=== PATIENT | female | born 1950 | race Caucasian/White ===

== ENCOUNTER 2017-01-05 09:46 | Emergency (ER) | payer MEDICARE, BC ==
[~2017-01-05 09:46] MED LIST: ACETAMINOPHEN500 M1 PO; BABY ASPIRIN81 MG PO; LEVAQUIN250 MG PO; LOPRESSOR25 MG PO; NEPHRO-VITE RX1 TAB PO; NITROSTAT0.4 MG SL; PHENERGAN25 M1 PO; PRILOSEC20 MG PO; PRINIVIL20 MG PO; RENVELA2.4 GM PO; SENSIPAR30 MG PO; ULTRAM50 MG PO; ZYLOPRIM100 MG PO
[2017-01-05 10:48] LABS: BASOPHILS 0.9 % (0.0-2.0); EOSINOPHILS 1.3 % (0-7); HEMATOCRIT 40.1 % (36.0-48.0); IMMATURE GRANULOCYTES 0.9 % (0-5); LYMPHOCYTES 18.8 % (15-50); MCH 31.8 pg (26.0-34.0); MCHC 32.4 g/dL (31.0-37.0); MONOCYTES 7.5 % (2-11); NEUTROPHILS 70.6 % (40-80); PLATELET COUNT 201 10x3/uL (130-400); RBC 4.09 10x6/uL (4.00-5.40); RDW 13.9 % (11.5-14.5); WBC 5.4 10x3/uL (4.8-10.8)
[2017-01-05 11:22] LABS: ANION GAP 17.9 mmol/L (8-16); BILIRUBIN - TOTAL 0.56 mg/dL (0.2-1.3); CALCIUM 8.8 mg/dL (8.5-10.1); CARBON DIOXIDE 27.6 mmol/L (21.0-32.0); CREATININE - SERUM 4.8 mg/dL (0.6-1.3); POTASSIUM - SERUM 4.5 mmol/L (3.5-5.1); PROTEIN - SERUM 7.9 g/dL (6.4-8.2); TROPONIN-I 0.032 ng/mL (0.000-0.060)
--- NOTE | 2017-01-07 08:41 | CN ---
PATIENT NAME:GINNA CAROLINA MEDICAL RECORD: [id number] : 46 LOCATION:D.ER ADMIT DATE: ACCOUNT: [id number] CONSULTING PHYSICIAN: EWELINA HILLIARD MD REFERRING PHYSICIAN: MAGDY LAND MD DATE OF CONSULTATION: 01/05/2017 DIAGNOSES: 1. Premature ventricular contractions - dysrhythmia. 2. End-stage renal failure on dialysis. 3. Hypertension. HISTORY OF PRESENT ILLNESS: Mrs. Carolina was on dialysis. It appears that they did vitals, they thought her heart rate was in the 30s, so they sent her to the Emergency Room. She has frequent PVCs and episodes of bigeminy. Her pulse rate has not falling below 60s since she has been in the Emergency Room. She is only sleepy. She does not have chest pain or chest discomfort. She is on metoprolol. She has been told in the past that she has an abnormal heart rhythm. She is not sure if she is on the metoprolol for that or for blood pressure, she is well on lisinopril. She has been on dialysis 6 years. No cardiac issues other than the PVCs. Her EKG has no ST-T abnormalities. PHYSICAL EXAMINATION: GENERAL APPEARANCE: Well-nourished, well-developed, appears stated age. Level of distress, comfortable. PSYCHIATRIC: Mental status, alert, normal affect. Orientation, oriented to time, place and person. EYES: Lids and conjunctiva, noninjected. No discharge, no pallor. ENT: Lips, teeth, gums, normal dentition. Oropharynx, no cyanosis, no pallor. NECK: Carotid arteries, bilateral normal upstroke, no bruits, no thrills. JUGULAR VEINS: No jugular venous pressure or distention. CERVICAL LYMPH NODES: Nontender, nonenlarged. THYROID: Not enlarged. Nontender. No nodules. LUNGS: Respiratory effort, unlabored. CHEST: Normal curvature. No thoracic deformity. No chest wall tenderness. Percussion, resonant. Auscultation, clear. No wheezes, no rales, no rhonchi. CARDIOVASCULAR: Precordial exam, nondisplaced. No heaves or pericardial thrills. Rate and rhythm, regular. Heart sounds, normal S1, normal S2. No S3, no gallop, no rub. Systolic murmur, not heard. Diastolic murmur, not heard. EXTREMITIES: No cyanosis, no edema. Peripheral pulses, full and equal in all extremities, except as noted. No bruits appreciated. ABDOMEN: Soft, nondistended. Normal aorta. No bruit. Nontender. No masses. Liver, nontender, no hepatomegaly. Spleen, nontender, no splenomegaly. MUSCULOSKELETAL: No joint tenderness. No joint swelling. No erythema. NEUROLOGICAL: Normal gait, normal strength, normal tone. SKIN: Warm and dry. REVIEW OF SYSTEMS: The patient reports easy bruising but reports no swollen glands. The patient reports no fever, no night sweats, no significant weight gain, no significant weight loss. No significant exercise tolerance. The patient reports no dry eyes, no irritation, no vision change. Patient reports no difficulty hearing and no ear pain. Patient reports no frequent nose bleeds or nose and sinus problems. Patient reports on arm pain on exertion. No shortness of breath while lying down. No history of heart murmur. Patient reports no cough, no wheezing or coughing up blood. Patient reports no CONSULT REPORT [id number] GINNA CAROLINA abdominal pain, no vomiting. Normal appetite. No diarrhea and not vomiting blood. No nausea and no constipation. Patient reports no incontinence. No difficulty urinating. No hematuria. No increased frequency. Patient reports no muscle aches. No weakness, no arthralgias, no back pain. No swelling of the extremities. Patient reports no abnormal mole, no jaundice, no rashes. Reports no loss of consciousness. No weakness and no numbness. No seizures, dizziness, or headaches. The patient reports no depression, no sleep disturbance, feeling safe in a relationship and no alcohol abuse. Patient reports on fatigue. Reports no runny nose or sinus pressure. No itching, no hives, and no frequent sneezing. OVERALL IMPRESSION: Her pulse rate was not in 30s, it was the premature ventricular contractions on vital check that gave the impression that she had bradycardia, but she did not have bradycardia. She has not had any bradycardia since being on telemetry. We can try changing the metoprolol to sotalol to see if this would do a better job suppressing the premature ventricular contractions, but overall she is minimally symptomatic with the premature ventricular contractions and it is difficult to say if the overall state is even coming from the premature ventricular contractions or just from being end-stage renal failure on dialysis. We will see her back in approximately 1 month to see if the sotalol has made a difference in her symptomatology and the premature ventricular contractions. TRANSINT:[id number] Voice Confirmation ID: [id number] DOCUMENT ID: [id number] EWELINA HILLIARD MD at 0841 CC: [id number] DICTATION DATE: 01/05/17 1342 SENIOR SOLUTIONS ARCHITECT: 01/05/17 2116 DEP ER 01/05/17 [id number] [place] [address]
== END 2017-01-05 14:16 | disposition home or self-care (01) ==
LOC: D.ER 09:46
PROVIDERS: Emergency Medicine
DX: R00.1 Bradycardia, unspecified (principal); I10 Essential (primary) hypertension; K21.9 Gastro-esophageal reflux disease without esophagitis

== ENCOUNTER 2018-07-14 10:41 | Inpatient (IN) | payer MEDICARE, BC ==
[~2018-07-14] VITALS: Ht 165.1 cm; Wt 56.8 kg
--- NOTE | ~2018-07-14 | MORECARE ---
CASE MANAGEMENT DISCHARGE SUMMARY PATIENT: GINNA CAROLINA UNIT: [id number] ADM DATE: 07/14/18 AGE: 67 : [birth year] SEX: F ROOM/BED: D.7235 AUTHOR: GERARDO BROWNING PHYSICIAN: REFERRING PHYSICIAN: LUZMA JACKSON MD DATE OF SERVICE: 07/26/18 Discharge Plan Patient Name: GINNA CAROLINA Facility: [facility]:[place] : 1950 Planned Disposition: Home with Home Health Anticipated Discharge Date: 07/26/18 Discharge Date: Expected LOS: 12 Initial Reviewer: [email or web address] Initial Review Date: 07/18/2018 Generated: 07/26/18 2:35 pm Comments DCP- Discharge Planning Updated by [id number]: Akin Hastings on 07/26/18 12:[address] Patient Name: GINNA CAROLINA Encounter No: [id number] : 1950 Primary Insurance: MEDICARE A & B Anticipated DC Date: 07-27-2018 Planned Disposition: Home with Home Health External Planned Provider: [facility] DCP follow-up note: CM RECEIVED DISCHARGE PLANNING ORDER, MET WITH PT AND SPOUSE IN ROOM. PT REPORTS PLAN TO RETURN HOME AT DISCHARGE AND IS NOT INTERESTED IN INPATIENT REHAB OR SENIOR CARE REHAB. PT'S SPOUSE REPORTS HE WILL BE TAKING CARE OF PT AT HOME. PT IS STILL WANTING HOME HEALTH WITH [facility]. IMPORTANT MESSAGE FROM MEDICARE PROVIDED AND EXPLAINED. CM CALLED [facility], , SPOKE TO MARYBETH WHO INFORMED CM THAT [facility] WILL ACCEPT PT FOR HOME HEALTH SERVICES AT DISCHARGE. CM NOTIFIED OF PROJECTED DISCHARGE HOME TOMORROW. FOR DISCHARGE, FAX DISCHARGE INFORMATION TO [facility], . NOTIFY [facility] OF DISCHARGE HOME AT [phone]. CM TO CONTINUE TO FOLLOW AND ASSIST NEEDED. Akin Hastings, CASE MANAGEMENT Appended by Akin Hastings on 07/26/2018 13:32 CDT: CM RECEIVED DISCHARGE ORDER, FAXED DISCHARGE INFORMATION TO [facility], . NOTIFIED ALISA AT [facility] OF DISCHARGE HOME AT [phone]. FLAT EXAMINER NURSE NOTIFIED. SPOUSE TO TRANSPORT HOME. JAYESH WARNER DCP- Discharge Planning Updated by [id number]: Akin Hastings on 07/21/18 8:[address] Patient Name: GINNA CAROLINA Encounter No: [id number] : 1950 Primary Insurance: MEDICARE A & B Anticipated DC Date: 07-22-2018 Planned Disposition: Home with Home Health External Planned Provider: [facility] DCP follow-up note: CM RECEIVED HOME HEALTH RODER, MET WITH PT AND SPOUSE IN ROOM TO DISCUSS DISCHARGE NEEDS AND PLANNING. GINNA CAROLINA provided verbal consent to discuss current and ongoing needs with/in the presence of: SPOUSE LISA. CM DISCUSSED HOME HEALTH ORDER, AVILABILITY OF HOME HEALTH, REHAB SERVICES AND MEDICAL EQUIPMENT. PT DENIES DISCHARGE NEEDS OTHER THAN HOME HEALTH. SHE REPORTS SHE WILL TRY IT IT WAS RECOMMENDED BY A FAMILY MEMBER. CHOICE SIGNED WITH NO PROVIDER PREFERENCE. SPOUSE TO TRANSPORT HOME AT DISCHARGE. IMPORTANT MESSAGE FROM MEDICARE PROVIDED AND EXPLAINED. CM CALLED [facility], , SPOKE TO MARIO WHO TOOK REFERRAL AND WILL FORWARD TO LOCAL [facility] FOR REVIEW AND ADMISSION DETERMINATION. CM FAXED REFERRAL TO [facility], . CM WAITING ADMISSION DETERMINATION FROM [facility]. JAYESH Warner DCP- Discharge Planning Updated by [id number]: Akin Hastings on 07/18/18 11:[address] Patient Name: GINNA CAROLINA Admission Status: Elective Accout number: [id number] Admission Date: 07-14-2018 : 1950 Admission Diagnosis:OTHER NONSPECIFIC ABNORMAL FINDING OF LUNG FIELD Attending: Luzma Jackson Current LOS: 4 Anticipated DC Date: 07-18-2018 Planned Disposition: Home Primary Insurance: MEDICARE A & B Discharge Planning Comments: * Is the patient Alert and Oriented? Yes 0 * How many steps to enter\exit or inside your home? RAMP 0 * PCP DR. JACKSON 0 * Pharmacy [facility] [address] 0 * Preadmission Environment Home with Family 0 * ADLs Independent 0 * Equipment None 0 * Other Equipment NO MEDICAL EQUIPMENT PROVIDER PREFERENCE 0 * List name and contact numbers for known caregivers / representatives who currently or will assist patient after discharge: LISA CAROLINA, SPOUSE, 0 * Verbal permission to speak to the caregivers and representatives has been obtained from the patient. Yes 0 * Community resources currently utilized Other 0 * Please name any agencies selected above. [facility], [facility], [facility], [facility], SPOUSE OR ADULT SON TRANSPORTS 0 * Additional services required to return to the preadmission environment? No 0 * Can the patient safely return to the preadmission environment? Yes 0 * Has this patient been hospitalized within the prior 30 days at any hospital? No 0 CM RECEIVED ORDER FOR HOME NEEDS VS HOSPICE, MET WITH PT AND SPOUSE IN ROOM TO DISCUSS DISCHARGE PLANNING AND NEEDS. GINNA CAROLINA provided verbal consent to discuss current and ongoing needs with/in the presence of: SPOUSE, LISA. PT REPORTS LIVING AT HOME INDEPENDENTLY WITH HER SPOUSE AND ADULT SON. PT HAS NO MEDICAL EQUIPMENT AND NO OUTSIDE SERVICES ASSISTING IN THE HOME. CM DISCUSSED HOSPICE SERVICES WELL AVAILABILITY OF HOME HEALTH, REHAB SERVICES AND MEDICAL EQUIPMENT. PT AND SPOUSE BOTH DECLINE HOSPICE. PT'S SPOUSE REPORTS LONG HE CAN GET PT TO AND FROM [facility], SHE WILL BE GOING HOME WITH HIM. PT REPORTS SHE WANTS TO GO HOME NOW. PT AND SPOUSE DENIED DISCHARGE NEEDS, DECLINED NEED OF MEDICAL EQUIPMENT, REHAB SERVICES OR HOME HEALTH. PT'S SPOUSE WILL TRANSPORT PT HOME. IMPORTANT MESSAGE FROM MEDICARE PROVIDED AND EXPLAINED. PT AND SPOUSE DECLINED HOSPICE, HOME HEALTH, REHAB SERVICES AND DENIED NEED OF MEDICAL EQUIPMENT. PT PLANS TO DISCHARGE HOME WITH ASSISTANCE OF SPOUSE AND ADULT SON IN THE HOME. CM TO FOLLOW AND ASSIST IF NEEDED. Dope Worker: Akin Hastings DCPIA - Discharge Planning Initial Assessment Updated by [id number]: Akin Hastings on 07/18/18 12:06 pm * Is the patient Alert and Oriented? Yes * How many steps to enter\exit or inside your home? RAMP * PCP DR. JACKSON * Pharmacy [facility] [address] * Preadmission Environment Home with Family * ADLs Independent * Equipment None * Other Equipment NO MEDICAL EQUIPMENT PROVIDER PREFERENCE * List name and contact numbers for known caregivers / representatives who currently or will assist patient after discharge: LISA CAROLINA, SPOUSE, * Verbal permission to speak to the caregivers and representatives has been obtained from the patient. Yes * Community resources currently utilized Other * Please name any agencies selected above. [facility], [facility], [facility], [facility], SPOUSE OR ADULT SON TRANSPORTS * Additional services required to return to the preadmission environment? No * Can the patient safely return to the preadmission environment? Yes * Has this patient been hospitalized within the prior 30 days at any hospital? No Coverage Notice Reviewer: LIBAN Hastings Notice Issued Date-Time: 07/18/2018 10:55 Notice Type: IM Discharge Notice Notice Delivered To: Patient Relationship to Patient: Quill Stripper Name: Delivery Method: HAND - Hand Delivered Bibi Days: Prior Verbal Notification: Recipient Understood Notice: Yes Recipient Signature: Yes Med Rec Note Co-signed by Attending: Coverage Notice Comment: Reviewer: LIBAN Hastings Notice Issued Date-Time: 07/21/2018 9:25 Notice Type: Patient Choice Letter Notice Delivered To: Patient Relationship to Patient: Quill Stripper Name: Delivery Method: HAND - Hand Delivered Bibi Days: Prior Verbal Notification: Recipient Understood Notice: Yes Recipient Signature: Yes Med Rec Note Co-signed by Attending: Coverage Notice Comment: NO HHC PREFERENCE Reviewer: LIBAN Hastings Notice Issued Date-Time: 07/21/2018 9:25 Notice Type: IM Discharge Notice Notice Delivered To: Patient Relationship to Patient: Quill Stripper Name: Delivery Method: HAND - Hand Delivered Bibi Days: Prior Verbal Notification: Recipient Understood Notice: Yes Recipient Signature: Yes Med Rec Note Co-signed by Attending: Coverage Notice Comment: Reviewer: LIBAN Hastings Notice Issued Date-Time: 07/26/2018 10:00 Notice Type: IM Discharge Notice Notice Delivered To: Patient Relationship to Patient: Quill Stripper Name: Delivery Method: HAND - Hand Delivered Bibi Days: Prior Verbal Notification: Recipient Understood Notice: Yes Recipient Signature: Yes Med Rec Note Co-signed by Attending: Coverage Notice Comment: Last DP export: 07/26/18 12:23 Patient Name: GINNA CAROLINA Page [phone] at 1335 All edits/amendments must be made on the electronic document DICTATION DATE: 07/26/181333 CONSTRUCTION PROJECT ENGINEER: PHYLLIS 07/26/18 1334 RPT#: [id number] DC DATE: STATUS: ADM IN [facility] [address] [place] [address] END OF REPORT
--- NOTE | ~2018-07-14 | MORECARE ---
CASE MANAGEMENT DISCHARGE SUMMARY PATIENT: GINNA CAROLINA UNIT: [id number] ADM DATE: 07/14/18 AGE: 67 : 48 SEX: F ROOM/BED: D.8453 AUTHOR: GERARDO BROWNING PHYSICIAN: REFERRING PHYSICIAN: LUZMA JACKSON MD DATE OF SERVICE: 07/26/18 Discharge Plan Patient Name: GINNA CAROLINA Facility: [facility]:[place] : 1950 Planned Disposition: Home with Home Health Anticipated Discharge Date: 07/27/18 Discharge Date: Expected LOS: 13 Initial Reviewer: [email or web address] Initial Review Date: 07/18/2018 Generated: 07/26/18 12:24 pm Comments DCP- Discharge Planning Updated by [id number]: Akin Hastings on 07/21/18 8:[address] Patient Name: GINNA CAORLINA Encounter No: [id number] : 1950 Primary Insurance: MEDICARE A & B Anticipated DC Date: 07-22-2018 Planned Disposition: Home with Home Health External Planned Provider: [facility] DCP follow-up note: CM RECEIVED HOME HEALTH RODER, MET WITH PT AND SPOUSE IN ROOM TO DISCUSS DISCHARGE NEEDS AND PLANNING. GINNA CAROLINA provided verbal consent to discuss current and ongoing needs with/in the presence of: SPOUSE LISA. CM DISCUSSED HOME HEALTH ORDER, AVILABILITY OF HOME HEALTH, REHAB SERVICES AND MEDICAL EQUIPMENT. PT DENIES DISCHARGE NEEDS OTHER THAN HOME HEALTH. SHE REPORTS SHE WILL TRY IT IT WAS RECOMMENDED BY A FAMILY MEMBER. CHOICE SIGNED WITH NO PROVIDER PREFERENCE. SPOUSE TO TRANSPORT HOME AT DISCHARGE. IMPORTANT MESSAGE FROM MEDICARE PROVIDED AND EXPLAINED. CM CALLED [facility], , SPOKE TO MARIO WHO TOOK REFERRAL AND WILL FORWARD TO LOCAL [facility] OFFICE FOR REVIEW AND ADMISSION DETERMINATION. CM FAXED REFERRAL TO [facility], . CM WAITING ADMISSION DETERMINATION FROM [facility]. Akin Hastings CASE MANAGEMENT DCP- Discharge Planning Updated by [id number]: Akin Hastings on 07/18/18 11:[address] Patient Name: GINNA CAROLINA Admission Status: Elective Accout number: [id number] Admission Date: 07-14-2018 : 1950 Admission Diagnosis:OTHER NONSPECIFIC ABNORMAL FINDING OF LUNG FIELD Attending: Luzma Jackson Current LOS: 4 Anticipated DC Date: 07-18-2018 Planned Disposition: Home Primary Insurance: MEDICARE A & B Discharge Planning Comments: * Is the patient Alert and Oriented? Yes 0 * How many steps to enter\exit or inside your home? RAMP 0 * PCP DR. JACKSON 0 * Pharmacy [facility] [address] 0 * Preadmission Environment Home with Family 0 * ADLs Independent 0 * Equipment None 0 * Other Equipment NO MEDICAL EQUIPMENT PROVIDER PREFERENCE 0 * List name and contact numbers for known caregivers / representatives who currently or will assist patient after discharge: LISA CAROLINA, SPOUSE, 0 * Verbal permission to speak to the caregivers and representatives has been obtained from the patient. Yes 0 * Community resources currently utilized Other 0 * Please name any agencies selected above. [facility], [facility], [facility], [facility], SPOUSE OR ADULT SON TRANSPORTS 0 * Additional services required to return to the preadmission environment? No 0 * Can the patient safely return to the preadmission environment? Yes 0 * Has this patient been hospitalized within the prior 30 days at any hospital? No 0 CM RECEIVED ORDER FOR HOME NEEDS VS HOSPICE, MET WITH PT AND SPOUSE IN ROOM TO DISCUSS DISCHARGE PLANNING AND NEEDS. GINNA CAROLINA provided verbal consent to discuss current and ongoing needs with/in the presence of: SPOUSE, LISA. PT REPORTS LIVING AT HOME INDEPENDENTLY WITH HER SPOUSE AND ADULT SON. PT HAS NO MEDICAL EQUIPMENT AND NO OUTSIDE SERVICES ASSISTING IN THE HOME. CM DISCUSSED HOSPICE SERVICES WELL AVAILABILITY OF HOME HEALTH, REHAB SERVICES AND MEDICAL EQUIPMENT. PT AND SPOUSE BOTH DECLINE HOSPICE. PT'S SPOUSE REPORTS LONG HE CAN GET PT [facility] AND [facility], SHE WILL BE GOING HOME WITH HIM. PT REPORTS SHE WANTS TO GO HOME NOW. PT AND SPOUSE DENIED DISCHARGE NEEDS, DECLINED NEED OF MEDICAL EQUIPMENT, REHAB SERVICES OR HOME HEALTH. PT'S SPOUSE WILL TRANSPORT PT HOME. IMPORTANT MESSAGE FROM MEDICARE PROVIDED AND EXPLAINED. PT AND SPOUSE DECLINED HOSPICE, HOME HEALTH, REHAB SERVICES AND DENIED NEED OF MEDICAL EQUIPMENT. PT PLANS TO DISCHARGE HOME WITH ASSISTANCE OF SPOUSE AND ADULT SON IN THE HOME. CM TO FOLLOW AND ASSIST IF NEEDED. Audio Visual Aide: Akin Hastings DCPIA - Discharge Planning Initial Assessment Updated by [id number]: Akin Hastings on 07/18/18 12:06 pm * Is the patient Alert and Oriented? Yes * How many steps to enter\exit or inside your home? RAMP * PCP DR. JACKSON * Pharmacy [facility] [address] * Preadmission Environment Home with Family * ADLs Independent * Equipment None * Other Equipment NO MEDICAL EQUIPMENT PROVIDER PREFERENCE * List name and contact numbers for known caregivers / representatives who currently or will assist patient after discharge: LISA CAROLINA, SPOUSE, * Verbal permission to speak to the caregivers and representatives has been obtained from the patient. Yes * Community resources currently utilized Other * Please name any agencies selected above. [facility], [facility], [facility], [facility], SPOUSE OR ADULT SON TRANSPORTS * Additional services required to return to the preadmission environment? No * Can the patient safely return to the preadmission environment? Yes * Has this patient been hospitalized within the prior 30 days at any hospital? No Coverage Notice Reviewer: LIBAN Hastings Notice Issued Date-Time: 07/18/2018 10:55 Notice Type: IM Discharge Notice Notice Delivered To: Patient Relationship to Patient: Rubber Factory Worker Name: Delivery Method: HAND - Hand Delivered Bibi Days: Prior Verbal Notification: Recipient Understood Notice: Yes Recipient Signature: Yes Med Rec Note Co-signed by Attending: Coverage Notice Comment: Reviewer: LIBAN Hastings Notice Issued Date-Time: 07/21/2018 9:25 Notice Type: Patient Choice Letter Notice Delivered To: Patient Relationship to Patient: Rubber Factory Worker Name: Delivery Method: HAND - Hand Delivered Bibi Days: Prior Verbal Notification: Recipient Understood Notice: Yes Recipient Signature: Yes Med Rec Note Co-signed by Attending: Coverage Notice Comment: NO [facility] PREFERENCE Reviewer: LIBAN Hastings Notice Issued Date-Time: 07/21/2018 9:25 Notice Type: IM Discharge Notice Notice Delivered To: Patient Relationship to Patient: Rubber Factory Worker Name: Delivery Method: HAND - Hand Delivered Bibi Days: Prior Verbal Notification: Recipient Understood Notice: Yes Recipient Signature: Yes Med Rec Note Co-signed by Attending: Coverage Notice Comment: Reviewer: LIBAN Hastings Notice Issued Date-Time: 07/26/2018 10:00 Notice Type: IM Discharge Notice Notice Delivered To: Patient Relationship to Patient: Rubber Factory Worker Name: Delivery Method: HAND - Hand Delivered Bibi Days: Prior Verbal Notification: Recipient Understood Notice: Yes Recipient Signature: Yes Med Rec Note Co-signed by Attending: Coverage Notice Comment: Last DP export: 07/21/18 8:47 Patient Name: GINNA CAROLINA Page [id number] at 1124 All edits/amendments must be made on the electronic document DICTATION DATE: 07/26/181122 FOAM RUBBER MIXER: PHYLLIS 07/26/181122 RPT#: [id number] DC DATE: STATUS: ADM IN [facility] [address] [place] [address] END OF REPORT
--- NOTE | ~2018-07-14 | MORECARE ---
CASE MANAGEMENT DISCHARGE SUMMARY PATIENT: GINNA CAROLINA UNIT: [id number] ADM DATE: 07/14/18 AGE: 67 : 48 SEX: F ROOM/BED: D.0875 AUTHOR: GERARDO BROWNING PHYSICIAN: REFERRING PHYSICIAN: LUZMA JACKSON MD DATE OF SERVICE: 07/26/18 Discharge Plan Patient Name: GINNA CAROLINA Facility: [facility]:[place] : 1950 Planned Disposition: Home with Home Health Anticipated Discharge Date: 07/27/18 Discharge Date: Expected LOS: 13 Initial Reviewer: [id number] Initial Review Date: 07/18/2018 Generated: 07/26/18 12:32 pm Comments DCP- Discharge Planning Updated by [id number]: Akin Hastings on 07/26/18 10:[address] Patient Name: GINNA CAROLINA Encounter No: [id number] : 1950 Primary Insurance: MEDICARE A & B Anticipated DC Date: 07-27-2018 Planned Disposition: Home with Home Health External Planned Provider: [facility] DCP follow-up note: CM RECEIVED DISCHARGE PLANNING ORDER, MET WITH PT AND SPOUSE IN ROOM. PT REPORTS PLAN TO RETURN HOME AT DISCHARGE AND IS NOT INTERESTED IN INPATIENT REHAB OR NURSING HOME REHAB. PT'S SPOUSE REPORTS HE WILL BE TAKING CARE OF PT AT HOME. PT IS STILL WANTING HOME HEALTH WITH [facility]. IMPORTANT MESSAGE FROM MEDICARE PROVIDED AND EXPLAINED. CM CALLED [facility], , SPOKE TO MARYBETH WHO INFORMED CM THAT [facility] WILL ACCEPT PT FOR HOME HEALTH SERVICES AT DISCHARGE. CM NOTIFIED OF PROJECTED DISCHARGE HOME TOMORROW. FOR DISCHARGE, FAX DISCHARGE INFORMATION TO [facility], . NOTIFY [facility] OF DISCHARGE HOME AT [phone]. CM TO CONTINUE TO FOLLOW AND ASSIST NEEDED. JAYESH Tan DCP- Discharge Planning Updated by [id number]: Akin Hastings on 07/21/18 8:[address] Patient Name: GINNA CAROLINA Encounter No: [id number] : 1950 Primary Insurance: MEDICARE A & B Anticipated DC Date: 07-22-2018 Planned Disposition: Home with Home Health External Planned Provider: [facility] DCP follow-up note: CM RECEIVED HOME HEALTH RODER, MET WITH PT AND SPOUSE IN ROOM TO DISCUSS DISCHARGE NEEDS AND PLANNING. GINNA CAROLINA provided verbal consent to discuss current and ongoing needs with/in the presence of: SPOUSE LISA. CM DISCUSSED HOME HEALTH ORDER, AVILABILITY OF HOME HEALTH, REHAB SERVICES AND MEDICAL EQUIPMENT. PT DENIES DISCHARGE NEEDS OTHER THAN HOME HEALTH. SHE REPORTS SHE WILL TRY IT IT WAS RECOMMENDED BY A FAMILY MEMBER. CHOICE SIGNED WITH NO PROVIDER PREFERENCE. SPOUSE TO TRANSPORT HOME AT DISCHARGE. IMPORTANT MESSAGE FROM MEDICARE PROVIDED AND EXPLAINED. CM CALLED [facility], , SPOKE TO MARIO WHO TOOK REFERRAL AND WILL FORWARD TO LOCAL [facility] OFFICE FOR REVIEW AND ADMISSION DETERMINATION. CM FAXED REFERRAL TO [facility], . CM WAITING ADMISSION DETERMINATION FROM [facility]. Akin Hastings, CASE MANAGEMENT DCP- Discharge Planning Updated by [email or web address]: Akin Hastings on 07/18/18 11:[address] Patient Name: GINNA CAROLINA Admission Status: Elective Accout number: [id number] Admission Date: 07-14-2018 : 1950 Admission Diagnosis:OTHER NONSPECIFIC ABNORMAL FINDING OF LUNG FIELD Attending: Luzma Jackson Current LOS: 4 Anticipated DC Date: 07-18-2018 Planned Disposition: Home Primary Insurance: MEDICARE A & B Discharge Planning Comments: * Is the patient Alert and Oriented? Yes 0 * How many steps to enter\exit or inside your home? RAMP 0 * PCP DR. JACKSON 0 * Pharmacy [facility] [address] 0 * Preadmission Environment Home with Family 0 * ADLs Independent 0 * Equipment None 0 * Other Equipment NO MEDICAL EQUIPMENT PROVIDER PREFERENCE 0 * List name and contact numbers for known caregivers / representatives who currently or will assist patient after discharge: LISA CAROLINA, SPOUSE, 0 * Verbal permission to speak to the caregivers and representatives has been obtained from the patient. Yes 0 * Community resources currently utilized Other 0 * Please name any agencies selected above. [facility], [facility], [facility], [facility], SPOUSE OR ADULT SON TRANSPORTS 0 * Additional services required to return to the preadmission environment? No 0 * Can the patient safely return to the preadmission environment? Yes 0 * Has this patient been hospitalized within the prior 30 days at any hospital? No 0 CM RECEIVED ORDER FOR HOME NEEDS VS HOSPICE, MET WITH PT AND SPOUSE IN ROOM TO DISCUSS DISCHARGE PLANNING AND NEEDS. GINNA CAROLINA provided verbal consent to discuss current and ongoing needs with/in the presence of: SPOUSE, LISA. PT REPORTS LIVING AT HOME INDEPENDENTLY WITH HER SPOUSE AND ADULT SON. PT HAS NO MEDICAL EQUIPMENT AND NO OUTSIDE SERVICES ASSISTING IN THE HOME. CM DISCUSSED HOSPICE SERVICES WELL AVAILABILITY OF HOME HEALTH, REHAB SERVICES AND MEDICAL EQUIPMENT. PT AND SPOUSE BOTH DECLINE HOSPICE. PT'S SPOUSE REPORTS LONG HE CAN GET PT TO AND FROM [facility], SHE WILL BE GOING HOME WITH HIM. PT REPORTS SHE WANTS TO GO HOME NOW. PT AND SPOUSE DENIED DISCHARGE NEEDS, DECLINED NEED OF MEDICAL EQUIPMENT, REHAB SERVICES OR HOME HEALTH. PT'S SPOUSE WILL TRANSPORT PT HOME. IMPORTANT MESSAGE FROM MEDICARE PROVIDED AND EXPLAINED. PT AND SPOUSE DECLINED HOSPICE, HOME HEALTH, REHAB SERVICES AND DENIED NEED OF MEDICAL EQUIPMENT. PT PLANS TO DISCHARGE HOME WITH ASSISTANCE OF SPOUSE AND ADULT SON IN THE HOME. CM TO FOLLOW AND ASSIST IF NEEDED. Business Segment Manager: Akin Hastings DCPIA - Discharge Planning Initial Assessment Updated by [id number]: Akin Hastings on 07/18/18 12:06 pm * Is the patient Alert and Oriented? Yes * How many steps to enter\exit or inside your home? RAMP * PCP DR. JACKSON * Pharmacy [facility] * Preadmission Environment Home with Family * ADLs Independent * Equipment None * Other Equipment NO MEDICAL EQUIPMENT PROVIDER PREFERENCE * List name and contact numbers for known caregivers / representatives who currently or will assist patient after discharge: LISA CAROLINA, SPOUSE, * Verbal permission to speak to the caregivers and representatives has been obtained from the patient. Yes * Community resources currently utilized Other * Please name any agencies selected above. [facility], [facility], [facility], [facility], SPOUSE OR ADULT SON TRANSPORTS * Additional services required to return to the preadmission environment? No * Can the patient safely return to the preadmission environment? Yes * Has this patient been hospitalized within the prior 30 days at any hospital? No Coverage Notice Reviewer: [id number] - Akin Hastings Notice Issued Date-Time: 07/21/2018 9:25 Notice Type: Patient Choice Letter Notice Delivered To: Patient Relationship to Patient: Bias Cutter Helper Name: Delivery Method: HAND - Hand Delivered Bibi Days: Prior Verbal Notification: Recipient Understood Notice: Yes Recipient Signature: Yes Med Rec Note Co-signed by Attending: Coverage Notice Comment: NO [facility] PREFERENCE Reviewer: LIBAN Hastings Notice Issued Date-Time: 07/26/2018 10:00 Notice Type: IM Discharge Notice Notice Delivered To: Patient Relationship to Patient: Bias Cutter Helper Name: Delivery Method: HAND - Hand Delivered Bibi Days: Prior Verbal Notification: Recipient Understood Notice: Yes Recipient Signature: Yes Med Rec Note Co-signed by Attending: Coverage Notice Comment: Reviewer: LIBAN Hastings Notice Issued Date-Time: 07/21/2018 9:25 Notice Type: IM Discharge Notice Notice Delivered To: Patient Relationship to Patient: Bias Cutter Helper Name: Delivery Method: HAND - Hand Delivered Bibi Days: Prior Verbal Notification: Recipient Understood Notice: Yes Recipient Signature: Yes Med Rec Note Co-signed by Attending: Coverage Notice Comment: Reviewer: LIBAN Hastings Notice Issued Date-Time: 07/18/2018 10:55 Notice Type: IM Discharge Notice Notice Delivered To: Patient Relationship to Patient: Bias Cutter Helper Name: Delivery Method: HAND - Hand Delivered Bibi Days: Prior Verbal Notification: Recipient Understood Notice: Yes Recipient Signature: Yes Med Rec Note Co-signed by Attending: Coverage Notice Comment: Last DP export: 07/26/18 10:24 Patient Name: GINNA CAROLINA Page [id number] at 1132 All edits/amendments must be made on the electronic document DICTATION DATE: 07/26/18 1131 SOLAR INSTALLATION FOREMAN: DM 07/26/18 1131 RPT#: [id number] DC DATE: STATUS: ADM IN [facility] [address] [place] [address] END OF REPORT
--- NOTE | ~2018-07-14 | MORECARE ---
CASE MANAGEMENT DISCHARGE SUMMARY PATIENT: GINNA CAROLINA UNIT: [id number] ADM DATE: 07/14/18 AGE: 67 : 48 SEX: F ROOM/BED: D.6083 AUTHOR: GERARDO BROWNING PHYSICIAN: REFERRING PHYSICIAN: LUZMA JACKSON MD DATE OF SERVICE: 07/26/18 Discharge Plan Patient Name: GINNA CAROLINA Facility: [facility]:[place] : 1950 Planned Disposition: Home with Home Health Anticipated Discharge Date: 07/26/18 Discharge Date: Expected LOS: 12 Initial Reviewer: [id number] Initial Review Date: 07/18/2018 Generated: 07/26/18 2:23 pm Comments DCP- Discharge Planning Updated by [id number]: Akin Hastings on 07/26/18 10:[address] Patient Name: GINNA CAROLINA Encounter No: [id number] : 1950 Primary Insurance: MEDICARE A & B Anticipated DC Date: 07-27-2018 Planned Disposition: Home with Home Health External Planned Provider: [facility] DCP follow-up note: CM RECEIVED DISCHARGE PLANNING ORDER, MET WITH PT AND SPOUSE IN ROOM. PT REPORTS PLAN TO RETURN HOME AT DISCHARGE AND IS NOT INTERESTED IN INPATIENT REHAB OR [facility] REHAB. PT'S SPOUSE REPORTS HE WILL BE TAKING CARE OF PT AT HOME. PT IS STILL WANTING HOME HEALTH WITH [facility]. IMPORTANT MESSAGE FROM MEDICARE PROVIDED AND EXPLAINED. CM CALLED [facility], , SPOKE TO MARYBETH WHO INFORMED CM THAT [facility] WILL ACCEPT PT FOR HOME HEALTH SERVICES AT DISCHARGE. CM NOTIFIED OF PROJECTED DISCHARGE HOME TOMORROW. FOR DISCHARGE, FAX DISCHARGE INFORMATION TO [facility], . NOTIFY [facility] OF DISCHARGE HOME AT [phone]. CM TO CONTINUE TO FOLLOW AND ASSIST NEEDED. JAYESH Tan DCP- Discharge Planning Updated by [id number]: Akin Hastings on 07/21/18 8:[address] Patient Name: GINNA CAROLINA Encounter No: [id number] : 1950 Primary Insurance: MEDICARE A & B Anticipated DC Date: 07-22-2018 Planned Disposition: Home with Home Health External Planned Provider: [facility] DCP follow-up note: CM RECEIVED HOME HEALTH RODER, MET WITH PT AND SPOUSE IN ROOM TO DISCUSS DISCHARGE NEEDS AND PLANNING. GINNA CAROLINA provided verbal consent to discuss current and ongoing needs with/in the presence of: SPOUSE LISA. CM DISCUSSED HOME HEALTH ORDER, AVILABILITY OF HOME HEALTH, REHAB SERVICES AND MEDICAL EQUIPMENT. PT DENIES DISCHARGE NEEDS OTHER THAN HOME HEALTH. SHE REPORTS SHE WILL TRY IT IT WAS RECOMMENDED BY A FAMILY MEMBER. CHOICE SIGNED WITH NO PROVIDER PREFERENCE. SPOUSE TO TRANSPORT HOME AT DISCHARGE. IMPORTANT MESSAGE FROM MEDICARE PROVIDED AND EXPLAINED. CM CALLED [facility], , SPOKE TO MARIO WHO TOOK REFERRAL AND WILL FORWARD TO LOCAL [facility] OFFICE FOR REVIEW AND ADMISSION DETERMINATION. CM FAXED REFERRAL TO [facility], . CM WAITING ADMISSION DETERMINATION FROM [facility]. Akin Hastings, CASE MANAGEMENT DCP- Discharge Planning Updated by [id number]: Akin Hastings on 07/18/18 11:[address] Patient Name: GINNA CAROLINA Admission Status: Elective Accout number: [id number] Admission Date: 07-14-2018 : 1950 Admission Diagnosis:OTHER NONSPECIFIC ABNORMAL FINDING OF LUNG FIELD Attending: Luzma Jackson Current LOS: 4 Anticipated DC Date: 07-18-2018 Planned Disposition: Home Primary Insurance: MEDICARE A & B Discharge Planning Comments: * Is the patient Alert and Oriented? Yes 0 * How many steps to enter\exit or inside your home? RAMP 0 * PCP DR. JACKSON 0 * Pharmacy [facility] [address] 0 * Preadmission Environment Home with Family 0 * ADLs Independent 0 * Equipment None 0 * Other Equipment NO MEDICAL EQUIPMENT PROVIDER PREFERENCE 0 * List name and contact numbers for known caregivers / representatives who currently or will assist patient after discharge: LISA CAROLINA, SPOUSE, 0 * Verbal permission to speak to the caregivers and representatives has been obtained from the patient. Yes 0 * Community resources currently utilized Other 0 * Please name any agencies selected above. [facility] D[facility]YSIS, [facility], [facility], [facility], SPOUSE OR ADULT SON TRANSPORTS 0 * Additional services required to return to the preadmission environment? No 0 * Can the patient safely return to the preadmission environment? Yes 0 * Has this patient been hospitalized within the prior 30 days at any hospital? No 0 CM RECEIVED ORDER FOR HOME NEEDS VS HOSPICE, MET WITH PT AND SPOUSE IN ROOM TO DISCUSS DISCHARGE PLANNING AND NEEDS. GINNA CAROLINA provided verbal consent to discuss current and ongoing needs with/in the presence of: SPOUSE, LISA. PT REPORTS LIVING AT HOME INDEPENDENTLY WITH HER SPOUSE AND ADULT SON. PT HAS NO MEDICAL EQUIPMENT AND NO OUTSIDE SERVICES ASSISTING IN THE HOME. CM DISCUSSED HOSPICE SERVICES WELL AVAILABILITY OF HOME HEALTH, REHAB SERVICES AND MEDICAL EQUIPMENT. PT AND SPOUSE BOTH DECLINE HOSPICE. PT'S SPOUSE REPORTS LONG HE CAN GET PT TO AND FROM [facility], SHE WILL BE GOING HOME WITH HIM. PT REPORTS SHE WANTS TO GO HOME NOW. PT AND SPOUSE DENIED DISCHARGE NEEDS, DECLINED NEED OF MEDICAL EQUIPMENT, REHAB SERVICES OR HOME HEALTH. PT'S SPOUSE WILL TRANSPORT PT HOME. IMPORTANT MESSAGE FROM MEDICARE PROVIDED AND EXPLAINED. PT AND SPOUSE DECLINED HOSPICE, HOME HEALTH, REHAB SERVICES AND DENIED NEED OF MEDICAL EQUIPMENT. PT PLANS TO DISCHARGE HOME WITH ASSISTANCE OF SPOUSE AND ADULT SON IN THE HOME. CM TO FOLLOW AND ASSIST IF NEEDED. Wallpaper Consultant: Akin Hastings DCPIA - Discharge Planning Initial Assessment Updated by [id number]: Akin Hastings on 07/18/18 12:06 pm * Is the patient Alert and Oriented? Yes * How many steps to enter\exit or inside your home? RAMP * PCP DR. JACKSON * Pharmacy [facility] * Preadmission Environment Home with Family * ADLs Independent * Equipment None * Other Equipment NO MEDICAL EQUIPMENT PROVIDER PREFERENCE * List name and contact numbers for known caregivers / representatives who currently or will assist patient after discharge: LISA CAROLINA, SPOUSE, * Verbal permission to speak to the caregivers and representatives has been obtained from the patient. Yes * Community resources currently utilized Other * Please name any agencies selected above. [facility]IENT DIALYSIS, [facility], [facility], [facility], SPOUSE OR ADULT SON TRANSPORTS * Additional services required to return to the preadmission environment? No * Can the patient safely return to the preadmission environment? Yes * Has this patient been hospitalized within the prior 30 days at any hospital? No Coverage Notice Reviewer: [id number] - Akin Hastings Notice Issued Date-Time: 07/18/2018 10:55 Notice Type: IM Discharge Notice Notice Delivered To: Patient Relationship to Patient: Heating Engineer Name: Delivery Method: HAND - Hand Delivered Bibi Days: Prior Verbal Notification: Recipient Understood Notice: Yes Recipient Signature: Yes Med Rec Note Co-signed by Attending: Coverage Notice Comment: Reviewer: LIBAN Hastings Notice Issued Date-Time: 07/21/2018 9:25 Notice Type: Patient Choice Letter Notice Delivered To: Patient Relationship to Patient: Heating Engineer Name: Delivery Method: HAND - Hand Delivered Bibi Days: Prior Verbal Notification: Recipient Understood Notice: Yes Recipient Signature: Yes Med Rec Note Co-signed by Attending: Coverage Notice Comment: NO HHC PREFERENCE Reviewer: LIBAN Hastings Notice Issued Date-Time: 07/21/2018 9:25 Notice Type: IM Discharge Notice Notice Delivered To: Patient Relationship to Patient: Heating Engineer Name: Delivery Method: HAND - Hand Delivered Bibi Days: Prior Verbal Notification: Recipient Understood Notice: Yes Recipient Signature: Yes Med Rec Note Co-signed by Attending: Coverage Notice Comment: Reviewer: LIBAN Hastings Notice Issued Date-Time: 07/26/2018 10:00 Notice Type: IM Discharge Notice Notice Delivered To: Patient Relationship to Patient: Heating Engineer Name: Delivery Method: HAND - Hand Delivered Bibi Days: Prior Verbal Notification: Recipient Understood Notice: Yes Recipient Signature: Yes Med Rec Note Co-signed by Attending: Coverage Notice Comment: Last DP export: 07/26/18 10:32 Patient Name: GINNA CAROLINA Page [id number] at 1323 All edits/amendments must be made on the electronic document DICTATION DATE: 07/26/18 1323 CABLEMAN: PHYLLIS 07/26/18 1323 RPT#: [id number] DC DATE: STATUS: ADM IN [facility] [address] [place] [address] END OF REPORT
--- NOTE | ~2018-07-14 | HEMODYNAMI ---
PATIENT:GINNA CAROLINA MEDICAL RECORD: [id number] : 46 LOCATION:[facility] ADMISSION DATE: 07/14/18 Generatedon:07/18/20189:46 Patient name: GINNA CAROLINA Patient #: [id number] SSN: : [id number] Date of study: 07/18/2018 Page: Of Hemodynamic Procedure Report Patient Data Patient Demographics Procedure consent was obtained First Name: GINNA Gender: Female Last Name: CAITY : 1950 [facility] Initial: JOSÉ MIGUEL Age: 67 year(s) Patient #: [id number] Race: Unknown Additional ID: [id number] Contact details [address]: [address] [place] [address] State: [place] City: [place] Zip code: [address] Past Medical History Allergies Allergen Reaction Date Comments Reported Penicillins 07/18/2018 Admission Admission Data Admission Date: 07/14/2018 Admission Time: 12:15 Room #: [facility] Procedure Procedure Types Cath Procedure Peripheral Cath Diagnostic Procedure Miscellaneous Procedure Description Procedure Date Procedure Date: 07/18/2018 Procedure Start Time: 9:26 Procedure Staff Name Function Dean Ramos MD Performing Physician Randell Dunn RT Monitor Miguelina Vega Scrub Skyla Maria RN Nurse Procedure Data Cath Procedure Fluoroscopy Diagnostic fluoroscopy Total fluoroscopy Time: 0.7 time: 0.7 min min Diagnostic fluoroscopy Total fluoroscopy dose: 88 dose: 88 mGy mGy Procedure Medications Medication Administration Route Dosage Oxygen etCO2 Nasal cannula 4 l/min Lidocaine 1% added to field 20 Heparin Flush Bag added to field 1 bags (1000units/500ml NS) Versed I.V. 1 mg Fentanyl I.V. 50 mcg Versed I.V. 1 mg Fentanyl I.V. 50 mcg Hemodynamics Rest Heart Rate: 57 (bpm) Snapshots Pre Cath Intra NCS Post Cath Vital Signs Time Heart Resp SPO2 etCO2 NIBP (mmHg) Rhythm Pain Sedation Rate (ipm) (%) (mmHg) Status Level (bpm) 8:57:44 55 11 100 30.8 167/84(151) SB 0 (11) 10(A) , No pain 9:02:00 52 10 100 32.3 171/80(143) SB 0 (11) 9(A) , No pain 9:06:16 58 10 99 30.8 175/86(148) SB 0 (11) 9(A) , No pain 9:10:34 52 10 99 30 168/85(141) SB 0 (11) 9(A) , No pain 9:14:52 51 9 99 31.5 168/77(134) SB 0 (11) 9(A) , No pain 9:19:06 52 12 99 30 170/88(138) SB 0 (11) 9(A) , No pain 9:23:22 54 10 99 30.8 161/87(145) SB 0 (11) 9(A) , No pain 9:27:36 51 13 100 29.2 169/83(140) SB 0 (11) 8(A) , No pain 9:31:54 52 52 94 0 163/78(124) SB 0 (11) 10(A) , No pain 9:36:06 52 40 98 49.5 147/89(133) SB 0 (11) 10(A) , No pain 9:40:16 49 6 97 48.8 151/81(135) SB 0 (11) 10(A) , No pain 9:44:28 50 12 98 45.8 146/76(124) SB 0 (11) 10(A) , No pain Medications Time Medication Route Dose Verified Delivered Reason Notes Effec tiveness by by 9:00:31 Oxygen etCO2 4 Dean Crum for Nasal l/min Rachel Maria RN sedation cannula 9:01:06 Lidocaine 1% added 20ml Dean Moran used for to vial Ramos Ramos procedure field MD LARSON 9:01:34 Heparin Flush added 1 Dean Moran used for Bag to bags Ramos Ramos procedure (1000units/500ml field MD LARSON NS) 9:25:21 Versed I.V. 1 mg Dean Crum for Fully awake @ Rachel Maria RN sedation 9:28:37 9:25:30 Fentanyl I.V. 50 Dean Crum for Fully awake @ mcg Rachel Maria RN sedation 9:24:40 9:28:10 Versed I.V. 1 mg Dean Crum for Rachel Maria RN sedation 9:28:16 Fentanyl I.V. 50 Dean Crum for sera Maria RN sedation Procedure Log Time Note 8:43:55 Randell Dunn RT (R) (CV) sent for patient. Start room use. 8:44:16 Time tracking: Regular hours (M-F 7:00 - 5:00) 8:44:29 Plan of Care:Hemodynamics will remain stable., Cardiac rhythm will remain stable., Comfort level will be maintained., Respiratory function will remain adequate., Patient/ family verbilizes understanding of procedure., Procedure tolerated without complication., Recovers from procedure without complications.. 8:44:41 Patient received from [employer] to IR Alert and oriented. Tansferred to table in Prone position. 8:44:43 Correct patient and procedure confirmed by team. 8:44:45 Signed procedure consent form obtained from patient. 8:44:46 ECG and BP/O2 sat monitors applied to patient. 8:44:52 Full Disclosure recording started 8:44:53 8:45:02 H&P Date Dictated: 07/18/2018 Within 30 days and on chart.. 8:45:03 Pre-procedure instructions explained to patient. 8:45:05 Pre-op teaching completed and patient verbalized understanding. 8:45:17 Family unavailable. 8:45:19 Patient NPO since Midnight. 8:45:31 Patient allergic to Penicillins 8:45:43 Is the patient allergic to Iodine/contrast media? No. 8:45:45 Is patient on blood thinner?No 8:45:46 Patient diabetic? Yes. 8:45:49 If diabetic: On Metformin? No 8:45:50 8:45:51 ----Pre-sedation anethsthesia assessment.---- 8:45:56 Previous problem with sedation/anesthesia? No ? 8:45:58 Snore? No 8:45:59 Sleep apnea? No 8:46:04 Deviated septum? N/A 8:46:06 Opens mouth fully? Yes 8:46:07 Sticks out tongue? Yes 8:46:10 Airway obstruction? No ? 8:46:12 Dentures? No ? 8:46:54 Patient pain scale 0/10 no pain. 8:46:59 Sharps counted by scrub and verified by AmandaNDarren 8:47:00 Alarms reviewed by Amanda Jones. 8:47:10 IV patent on arrival in right hand with 0.9% NaCl at KVO. 8:47:15 Use device set IR Diagnostic 8:47:17 Bag Decanter (2002S) opened to sterile field. 8:47:18 Sterile Angiographic Pack opened to sterile field. 8:47:18 Tegaderm 4 x 4 ([id number]) opened to sterile field. 8:56:37 Vital chart was started 8:56:38 Baseline sample Acquired. 8:56:54 Lumbar sacral area was prepped with chlora-prep and draped in sterile fashion 9:00:31 Oxygen 4 l/min etCO2 Nasal cannula was administered by Skyla Maria RN; for sedation; 9:01:06 Lidocaine 1% 20ml vial added to field was administered by Dean Ramos MD; used for procedure; 9:01:34 Heparin Flush Bag (1000units/500ml NS) 1 bags added to field was administered by Dean Ramos MD; used for procedure; 9:24:40 Effectiveness of Fentanyl delivered @ 9:25:30 is: Fully awake 9:24:42 Sedation plan: IV Moderate Sedation Medication:Versed, Fentanyl 9:24:45 Physician arrived 9:24:45 --------ALL STOP TIME OUT------ 9:24:46 Final Timeout: patient, procedure, and site verified with staff and physician. All members of the team are in agreement. 9:24:50 Lumbar site verified by team. 9::21 Versed 1 mg I.V. was administered by Skyla Maria RN; for sedation; 9:25:30 Fentanyl 50 mcg I.V. was administered by Skyla Maria RN; for sedation; 9::17 Procedure started. 9:26:30 Local anesthetic to Lumbar area with Lidocaine 1% by Dean Ramos MD.INITIAL ACCESS ONLY 9:28:10 Versed 1 mg I.V. was administered by Skyla Maria RN; for sedation; 9::16 Fentanyl 50 mcg I.V. was administered by Skyla Maria RN; for sedation; 9:28:37 Effectiveness of Versed delivered @ 9:25:21 is: Fully awake 9:40:28 Procedure ended.(Physican Out) 9:40:35 Fluoroscopy time 00.70 minutes. 9:40:40 Fluoroscopy dose: 88 mGy 9:40:40 Flurop Dose total: 88 9:40:42 Sharps counted by scrub and verified by R.N. 9:40:43 Insertion/operative site no bleeding no hematoma. 9:40:58 Post-op/insertion site Left Lumbar sacral area dressed using a 4 x 4 and Tegaderm. 9:41:10 Post procedure instruction explained to patient.Patient verbalizes understanding. 9:41:11 Procedure and supply charges have been captured, reviewed, submitted and are correct. 9:45:29 Report given to [facility]. 9:45:34 Patient transfered to [facility] with Bed. 9:46:04 Vital chart was stopped Device Usage Item Name Manufacture Quantity Catalog Hospital Part Current Minimal Lot# / Number Charge Number Stock Stock Serial# Code Bag Decanter Microtek 1 [id number] () [employer] Sterile Cardinal 1 [id number] Angiographic Health Pack Tegaderm 4 x 3M 1 [id number] 4 ([id number]) Signature Audit [place] Stage Time Signature Unsigned Intra-Procedure 07/18/2018 Randell 9:46:00 AM Shaun RT (R) (CV) Signatures Monitor : Randell Signature : Shaun RT Date : Time : [place] [id number] [place] [address]
[2018-07-14] MEDS ORDERED: BETAPACE 80 MG80 MG PO (14:23)
[2018-07-14] MEDS ORDERED: KEPPRA500 MG PO (14:23)
[2018-07-14] MEDS ORDERED: VELTASSA8.4 GM PO (14:24)
[2018-07-14] MEDS ORDERED: SENSIPAR60 MG PO (14:26)
[2018-07-14 14:33] VITALS: BP 209/77; BMI 21.1
[2018-07-14 15:26] VITALS: BP 209/72
[2018-07-14 15:38] LABS: HEMATOCRIT 37.8 % (36.0-48.0); HEMOGLOBIN 12.6 g/dL (12-16); LYMPHOCYTES 14.2 % (15-50); MCHC 33.3 g/dL (31.0-37.0); MEAN PLATELET VOLUME 9.3 fL (7.4-10.4); NEUTROPHILS 76.2 % (40-80); PLATELET COUNT 194 10x3/uL (130-400); RBC 3.82 10x6/uL (4.00-5.40); RDW 14.7 % (11.5-14.5); WBC 4.9 10x3/uL (4.8-10.8)
[2018-07-14 15:46] LABS: PROTIME 12.8 SECONDS (11.6-15.0)
[2018-07-14 15:51] LABS: ALBUMIN 3.5 g/dL (3.4-5.0); ANION GAP 16.9 mmol/L (8-16); BILIRUBIN - TOTAL 1.28 mg/dL (0.2-1.3); CALCIUM 9.9 mg/dL (8.5-10.1); CARBON DIOXIDE 26.7 mmol/L (21.0-32.0); CREATININE - SERUM 4.9 mg/dL (0.6-1.3); POTASSIUM - SERUM 3.6 mmol/L (3.5-5.1); PROTEIN - SERUM 6.6 g/dL (6.4-8.2)
[2018-07-14 20:37] VITALS: BP 161/66
[2018-07-15 01:19] VITALS: BP 187/66
[2018-07-15 05:38] VITALS: BP 208/81
[2018-07-15 06:27] LABS: BASOPHILS 0.4 % (0-2); HEMATOCRIT 37.3 % (36.0-48.0); HEMOGLOBIN 12.4 g/dL (12-16); IMMATURE GRANULOCYTES 0.3 % (0-5); LYMPHOCYTES 17.6 % (15-50); MCH 33.2 pg (26.0-34.0); MCHC 33.2 g/dL (31.0-37.0); MCV 99.7 fL (80.0-100.0); MEAN PLATELET VOLUME 10.4 fL (7.4-10.4); MONOCYTES 11.3 % (2-11); NEUTROPHILS 68.4 % (40-80); PLATELET COUNT 219 10x3/uL (130-400); RBC 3.74 10x6/uL (4.00-5.40); RDW 13.9 % (11.5-14.5)
[2018-07-15 06:28] LABS: WBC 7.5 10x3/uL (4.8-10.8)
[2018-07-15 06:41] LABS: INR 0.99 (0.85-1.17); PROTIME 12.7 SECONDS (11.6-15.0)
[2018-07-15 06:45] LABS: ANION GAP 15.9 mmol/L (8-16); CALCIUM 10.3 mg/dL (8.5-10.1); CARBON DIOXIDE 25.6 mmol/L (21.0-32.0); CREATININE - SERUM 6.4 mg/dL (0.6-1.3); PHOSPHOROUS 6.4 mg/dL (2.5-4.9); POTASSIUM - SERUM 3.5 mmol/L (3.5-5.1)
[2018-07-15 09:35] VITALS: BP 167/73
[2018-07-15 11:14] VITALS: BMI 21.1
[2018-07-15 12:18] VITALS: BP 159/72
[2018-07-15 21:13] VITALS: BP 152/69
[2018-07-16 00:54] VITALS: BP 150/65
[2018-07-16 05:24] LABS: BASOPHILS 0.4 % (0-2); EOSINOPHILS 2.4 % (0-7); HEMATOCRIT 34.4 % (36.0-48.0); HEMOGLOBIN 11.5 g/dL (12-16); IMMATURE GRANULOCYTES 0.3 % (0-5); LYMPHOCYTES 16.3 % (15-50); MCH 33.2 pg (26.0-34.0); MCHC 33.4 g/dL (31.0-37.0); MCV 99.4 fL (80.0-100.0); MEAN PLATELET VOLUME 10.3 fL (7.4-10.4); MONOCYTES 9.1 % (2-11); NEUTROPHILS 71.5 % (40-80); PLATELET COUNT 196 10x3/uL (130-400); RBC 3.46 10x6/uL (4.00-5.40); WBC 6.8 10x3/uL (4.8-10.8)
[2018-07-16 05:25] VITALS: BP 151/65
[2018-07-16 05:43] LABS: ANION GAP 16.9 mmol/L (8-16); CALCIUM 9.7 mg/dL (8.5-10.1); CARBON DIOXIDE 23.1 mmol/L (21.0-32.0); CREATININE - SERUM 7.7 mg/dL (0.6-1.3); PHOSPHOROUS 7.4 mg/dL (2.5-4.9)
[2018-07-16 08:54] VITALS: BP 168/73
[2018-07-16 12:21] VITALS: Ht 165.1 cm; Wt 56.8 kg
[2018-07-16 12:36] VITALS: BP 147/63
[2018-07-16 16:25] VITALS: BP 176/82
[2018-07-16 20:30] VITALS: BP 143/66
[2018-07-17 00:30] VITALS: BP 154/77
[2018-07-17 04:30] VITALS: BP 182/70
[2018-07-17 05:07] LABS: BASOPHILS 0.6 % (0-2); HEMATOCRIT 35.1 % (36.0-48.0); HEMOGLOBIN 11.8 g/dL (12-16); IMMATURE GRANULOCYTES 0.3 % (0-5); LYMPHOCYTES 11.4 % (15-50); MCH 33.1 pg (26.0-34.0); MCHC 33.6 g/dL (31.0-37.0); MCV 98.3 fL (80.0-100.0); MEAN PLATELET VOLUME 10.4 fL (7.4-10.4); MONOCYTES 9.7 % (2-11); PLATELET COUNT 207 10x3/uL (130-400); RBC 3.57 10x6/uL (4.00-5.40); RDW 13.8 % (11.5-14.5)
[2018-07-17 05:26] LABS: ANION GAP 15.6 mmol/L (8-16); CALCIUM 10.1 mg/dL (8.5-10.1); CARBON DIOXIDE 25.5 mmol/L (21.0-32.0); PHOSPHOROUS 6.8 mg/dL (2.5-4.9); POTASSIUM - SERUM 4.1 mmol/L (3.5-5.1)
[2018-07-17 08:37] VITALS: BP 151/75
[2018-07-17 11:16] VITALS: BP 152/72
[2018-07-17 16:55] VITALS: BP 158/86
[2018-07-17 22:01] VITALS: BP 153/80
[2018-07-18 00:38] VITALS: BP 159/75
[2018-07-18 06:29] LABS: BASOPHILS 0.7 % (0-2); EOSINOPHILS 2.8 % (0-7); HEMATOCRIT 35.9 % (36.0-48.0); IMMATURE GRANULOCYTES 0.1 % (0-5); LYMPHOCYTES 10.5 % (15-50); MCH 33.3 pg (26.0-34.0); MCHC 33.4 g/dL (31.0-37.0); MCV 99.7 fL (80.0-100.0); MEAN PLATELET VOLUME 10.5 fL (7.4-10.4); MONOCYTES 14.7 % (2-11); NEUTROPHILS 71.2 % (40-80); PLATELET COUNT 194 10x3/uL (130-400); WBC 7.1 10x3/uL (4.8-10.8)
[2018-07-18 06:36] VITALS: BP 151/70
[2018-07-18 06:43] LABS: ANION GAP 16.1 mmol/L (8-16); CALCIUM 9.7 mg/dL (8.5-10.1); CARBON DIOXIDE 22.8 mmol/L (21.0-32.0); CREATININE - SERUM 7.9 mg/dL (0.6-1.3); PHOSPHOROUS 7.3 mg/dL (2.5-4.9); POTASSIUM - SERUM 3.9 mmol/L (3.5-5.1)
[2018-07-18 06:50] LABS: APTT 33.7 SECONDS (22.8-39.4); INR 1.05 (0.85-1.17); PROTIME 13.3 SECONDS (11.6-15.0)
[2018-07-18 09:36] VITALS: BP 143/124
[2018-07-18 10:55] VITALS: BP 145/66
[2018-07-18 16:45] VITALS: BP 156/78
[2018-07-18 21:04] VITALS: BP 166/65
[2018-07-19 00:56] VITALS: BP 143/69
[2018-07-19 04:22] VITALS: BP 150/69
[2018-07-19 04:36] LABS: EOSINOPHILS 3.5 % (0-7); HEMATOCRIT 34.8 % (36.0-48.0); HEMOGLOBIN 11.9 g/dL (12-16); IMMATURE GRANULOCYTES 0.4 % (0-5); LYMPHOCYTES 15.7 % (15-50); MCH 33.8 pg (26.0-34.0); MCHC 34.2 g/dL (31.0-37.0); MCV 98.9 fL (80.0-100.0); MEAN PLATELET VOLUME 10.2 fL (7.4-10.4); MONOCYTES 12.4 % (2-11); PLATELET COUNT 220 10x3/uL (130-400); RBC 3.52 10x6/uL (4.00-5.40); WBC 6.9 10x3/uL (4.8-10.8)
[2018-07-19 05:08] LABS: ALBUMIN 2.8 g/dL (3.4-5.0); ANION GAP 19.6 mmol/L (8-16); BILIRUBIN - TOTAL 0.59 mg/dL (0.2-1.3); CALCIUM 9.2 mg/dL (8.5-10.1); CARBON DIOXIDE 23.6 mmol/L (21.0-32.0); CREATININE - SERUM 9.7 mg/dL (0.6-1.3); PHOSPHOROUS 7.7 mg/dL (2.5-4.9); POTASSIUM - SERUM 4.2 mmol/L (3.5-5.1); PROTEIN - SERUM 6.2 g/dL (6.4-8.2)
[2018-07-19 07:49] VITALS: BP 151/82
[2018-07-19 15:20] LABS: SPE - A/G RATIO 1.4 (0.7-1.7); SPE - ALBUMIN 3.4 g/dL (2.9-4.4); SPE - ALPHA-1 GLOBULIN 0.2 g/dL (0.0-0.4); SPE - ALPHA-2 GLOBULIN 0.6 g/dL (0.4-1.0); SPE - BETA GLOBULIN 0.8 g/dL (0.7-1.3); SPE - GAMMA GLOBULIN 0.8 g/dL (0.4-1.8); SPE - M-SPIKE Not Observed g/dL (Not Observed); SPE - TOTAL PROTEIN 5.8 g/dL (6.0-8.5)
[2018-07-19 16:15] LABS: CA 27-29 18.5 U/mL (0.0-38.6)
[2018-07-19 20:29] VITALS: BP 135/75
[2018-07-20 01:10] VITALS: BP 151/82
[2018-07-20 05:12] LABS: BASOPHILS 0.9 % (0-2); EOSINOPHILS 2.5 % (0-7); HEMATOCRIT 37.2 % (36.0-48.0); HEMOGLOBIN 12.6 g/dL (12-16); IMMATURE GRANULOCYTES 0.5 % (0-5); LYMPHOCYTES 15.2 % (15-50); MCH 33.9 pg (26.0-34.0); MCHC 33.9 g/dL (31.0-37.0); MEAN PLATELET VOLUME 10.4 fL (7.4-10.4); MONOCYTES 15.3 % (2-11); NEUTROPHILS 65.6 % (40-80); PLATELET COUNT 215 10x3/uL (130-400); RBC 3.72 10x6/uL (4.00-5.40); WBC 7.6 10x3/uL (4.8-10.8)
[2018-07-20 05:26] LABS: ANION GAP 15.7 mmol/L (8-16); CALCIUM 9.8 mg/dL (8.5-10.1); CARBON DIOXIDE 26.2 mmol/L (21.0-32.0); POTASSIUM - SERUM 3.9 mmol/L (3.5-5.1)
[2018-07-20 05:50] LABS: CREATININE - SERUM 6.1 mg/dL (0.6-1.3); PHOSPHOROUS 5.5 mg/dL (2.5-4.9)
[2018-07-20 06:18] VITALS: BP 163/70
[2018-07-20 11:00] VITALS: BP 155/77
[2018-07-20 18:37] VITALS: BP 179/84
[2018-07-20 19:00] VITALS: BP 166/77
[2018-07-21 00:55] VITALS: BP 160/81
[2018-07-21 06:28] LABS: ANION GAP 14.3 mmol/L (8-16); CALCIUM 9.4 mg/dL (8.5-10.1); CARBON DIOXIDE 28.8 mmol/L (21.0-32.0); PHOSPHOROUS 5.8 mg/dL (2.5-4.9); POTASSIUM - SERUM 4.1 mmol/L (3.5-5.1)
[2018-07-21 06:30] LABS: CREATININE - SERUM 7.7 mg/dL (0.6-1.3)
[2018-07-21 07:08] VITALS: BP 165/78
[2018-07-21 08:47] VITALS: BP 137/77
[2018-07-21 16:17] VITALS: BP 117/66
[2018-07-21 22:25] VITALS: BP 99/69
[2018-07-22 02:17] VITALS: BP 154/71
[2018-07-22 05:59] VITALS: BP 121/54
[2018-07-22 06:09] LABS: BASOPHILS 0.9 % (0-2); EOSINOPHILS 4.1 % (0-7); HEMATOCRIT 36.9 % (36.0-48.0); HEMOGLOBIN 12.1 g/dL (12-16); IMMATURE GRANULOCYTES 0.1 % (0-5); LYMPHOCYTES 20.4 % (15-50); MCH 33.4 pg (26.0-34.0); MCHC 32.8 g/dL (31.0-37.0); MCV 101.9 fL (80.0-100.0); MEAN PLATELET VOLUME 10.5 fL (7.4-10.4); MONOCYTES 14.6 % (2-11); NEUTROPHILS 59.9 % (40-80); PLATELET COUNT 192 10x3/uL (130-400); RBC 3.62 10x6/uL (4.00-5.40); RDW 13.9 % (11.5-14.5); WBC 6.8 10x3/uL (4.8-10.8)
[2018-07-22 06:28] LABS: CALCIUM 9.6 mg/dL (8.5-10.1); CARBON DIOXIDE 28.6 mmol/L (21.0-32.0); PHOSPHOROUS 4.8 mg/dL (2.5-4.9); POTASSIUM - SERUM 3.6 mmol/L (3.5-5.1)
[2018-07-22 06:29] LABS: CREATININE - SERUM 5.4 mg/dL (0.6-1.3)
[2018-07-22 08:14] VITALS: BP 139/83
[2018-07-22 12:06] VITALS: BP 103/68
[2018-07-22 16:03] VITALS: BP 135/75
[2018-07-22 21:58] VITALS: BP 162/82
[2018-07-23 01:06] VITALS: BP 155/66
[2018-07-23 04:00] VITALS: BP 161/84
[2018-07-23 08:00] VITALS: BP 162/73
[2018-07-23 17:16] VITALS: BP 130/61
[2018-07-23 20:15] VITALS: BP 142/68
[2018-07-24 01:16] VITALS: BP 159/68
[2018-07-24 05:11] LABS: BASOPHILS 1.6 % (0-2); EOSINOPHILS 3.2 % (0-7); HEMATOCRIT 34.2 % (36.0-48.0); HEMOGLOBIN 11.3 g/dL (12-16); IMMATURE GRANULOCYTES 0.3 % (0-5); LYMPHOCYTES 25.6 % (15-50); MCH 33.3 pg (26.0-34.0); MCV 100.9 fL (80.0-100.0); MEAN PLATELET VOLUME 10.1 fL (7.4-10.4); MONOCYTES 12.1 % (2-11); NEUTROPHILS 57.2 % (40-80); PLATELET COUNT 215 10x3/uL (130-400); RBC 3.39 10x6/uL (4.00-5.40); RDW 13.6 % (11.5-14.5); WBC 7.1 10x3/uL (4.8-10.8)
[2018-07-24 05:20] LABS: ANION GAP 10.7 mmol/L (8-16); CALCIUM 9.6 mg/dL (8.5-10.1); CARBON DIOXIDE 29.1 mmol/L (21.0-32.0); CREATININE - SERUM 4.6 mg/dL (0.6-1.3); POTASSIUM - SERUM 3.8 mmol/L (3.5-5.1)
[2018-07-24 05:51] VITALS: BP 147/75
[2018-07-24 08:20] VITALS: BP 162/71
[2018-07-24 20:42] VITALS: BP 155/74
[2018-07-25 01:36] VITALS: BP 168/82
[2018-07-25 06:04] VITALS: BP 166/80
[2018-07-25 06:33] LABS: ANION GAP 13.8 mmol/L (8-16); CALCIUM 9.7 mg/dL (8.5-10.1); CARBON DIOXIDE 28.3 mmol/L (21.0-32.0); POTASSIUM - SERUM 4.1 mmol/L (3.5-5.1)
[2018-07-25 06:34] LABS: CREATININE - SERUM 6.3 mg/dL (0.6-1.3)
[2018-07-25 07:41] LABS: BASOPHILS 0.9 % (0-2); EOSINOPHILS 2.8 % (0-7); HEMATOCRIT 34.1 % (36.0-48.0); HEMOGLOBIN 11.5 g/dL (12-16); IMMATURE GRANULOCYTES 0.4 % (0-5); LYMPHOCYTES 17.7 % (15-50); MCH 33.9 pg (26.0-34.0); MCHC 33.7 g/dL (31.0-37.0); MCV 100.6 fL (80.0-100.0); MEAN PLATELET VOLUME 10.6 fL (7.4-10.4); MONOCYTES 11.7 % (2-11); NEUTROPHILS 66.5 % (40-80); PLATELET COUNT 235 10x3/uL (130-400); RBC 3.39 10x6/uL (4.00-5.40); RDW 13.5 % (11.5-14.5); WBC 7.6 10x3/uL (4.8-10.8)
[2018-07-25 09:15] VITALS: BP 175/81
[2018-07-25 11:05] VITALS: BP 174/77
[2018-07-25 14:42] VITALS: BP 137/74
[2018-07-25 21:22] VITALS: BP 130/63
[2018-07-26 01:19] VITALS: BP 179/72
[2018-07-26 05:01] LABS: BASOPHILS 0.9 % (0-2); EOSINOPHILS 2.4 % (0-7); HEMATOCRIT 33.1 % (36.0-48.0); HEMOGLOBIN 10.8 g/dL (12-16); IMMATURE GRANULOCYTES 0.6 % (0-5); LYMPHOCYTES 18.1 % (15-50); MCH 32.7 pg (26.0-34.0); MCHC 32.6 g/dL (31.0-37.0); MCV 100.3 fL (80.0-100.0); MEAN PLATELET VOLUME 10.4 fL (7.4-10.4); MONOCYTES 14.9 % (2-11); NEUTROPHILS 63.1 % (40-80); PLATELET COUNT 207 10x3/uL (130-400); RDW 13.5 % (11.5-14.5)
[2018-07-26 05:14] LABS: ANION GAP 15.8 mmol/L (8-16); CALCIUM 9.6 mg/dL (8.5-10.1); CARBON DIOXIDE 25.9 mmol/L (21.0-32.0); CREATININE - SERUM 7.4 mg/dL (0.6-1.3); PHOSPHOROUS 4.7 mg/dL (2.5-4.9); POTASSIUM - SERUM 4.7 mmol/L (3.5-5.1)
[2018-07-26 06:11] VITALS: BP 159/78
[2018-07-26 07:56] VITALS: BP 152/81
[2018-07-26 11:03] VITALS: BP 96/57
[2018-07-26] MEDS ORDERED: BETAPACE 80 MG80 MG PO (12:08)
== END 2018-07-26 19:37 | disposition home health service (06) | DRG 204 ==
LOC: D.M2
PROVIDERS: General Practice; Internal Medicine; Internal Medicine Hematology & Oncology; Internal Medicine Nephrology; Specialist
PROC: 5A1D70Z Performance of Urinary Filtration, Intermittent, Less than 6 Hours Per Day (ICD-10-PCS; 2018-07-16)
PROC: 07DR3ZX Extraction of Iliac Bone Marrow, Percutaneous Approach, Diagnostic (ICD-10-PCS; principal; 2018-07-18 09:24)
DX: R91.8 Other nonspecific abnormal finding of lung field (principal); N18.6 End stage renal disease; I12.0 Hypertensive chronic kidney disease with stage 5 chronic kidney disease or end stage renal disease; N17.9 Acute kidney failure, unspecified; M89.8X9 Other specified disorders of bone, unspecified site; E11.22 Type 2 diabetes mellitus with diabetic chronic kidney disease; Z99.2 Dependence on renal dialysis; D63.1 Anemia in chronic kidney disease; F32.9 Major depressive disorder, single episode, unspecified; F03.90 Unspecified dementia, unspecified severity, without behavioral disturbance, psychotic disturbance, mood disturbance, and anxiety; G40.909 Epilepsy, unspecified, not intractable, without status epilepticus; E21.0 Primary hyperparathyroidism; Z86.73 Personal history of transient ischemic attack (TIA), and cerebral infarction without residual deficits

== ENCOUNTER → 2018-10-27 13:05 | Outpatient (CLI) | payer MEDICARE, BC ==
[2018-07-16 12:21] VITALS: BMI 21.1
[~2018-10-27 13:05] MED LIST changes: +BETAPACE 80 MG80 MG PO; +KEPPRA500 MG PO; +SENSIPAR60 MG PO; +VELTASSA8.4 GM PO
== END | disposition home or self-care (01) ==
LOC: D.RAD 13:05
DX: M54.6 Pain in thoracic spine (principal); M54.5 Low back pain

== ENCOUNTER → 2019-03-29 12:29 | Outpatient (CLI) | payer MEDICARE, BC ==
[2018-07-16 12:21] VITALS: BMI 21.1
--- NOTE | 2019-03-31 13:25 | EC ---
PATIENT:GINNA CAROLINA DATE OF SERVICE: 03/29/19 SEX: F MEDICAL RECORD: [id number] DATE OF : 46 [facility] AGE OF PATIENT: 68 ADMISSION DATE: 03/29/19 REFERRING PHYSICIAN: INTERPRETING PHYSICIAN: EWELINA ARBOLEDA MD ECHOCARDIOGRAM REPORT ECHO CHARGES 4 ECHO COMPLETE Date: 03/29/19 CLINICAL DIAGNOSIS: AORITC STENOSIS, MR/TR ECHOCARDIOGRAPHIC MEASUREMENTS (adult normal given) AC root (d.<3.7cm) 4.6 cm LV Septum d (<1.2 cm> 1.51 cm Valve Excursion 1.5 cm LV Septum (systole) 1.7 cm Left Atria (s.<4.0cm> 4.9 cm LVPW d(<1.2cm) 1.6 cm RV (d.<2.3cm) 3.8 cm LVPW (sytole) 1.8 cm LV diastole(<5.6CM) 5.0 cm MV E-F(>70mm/sec) cm LV systole 3.0 cm LVOT Diameter 1.3 cm MV exc.(>10mm) cm Est.ejection fraction (50-75%) % DOPPLER: LVIT cm/sec A 98.0 cm/sec E 102 cm/sec LA cm/sec RVSP 21 mmHg LVOT 95 cm/sec AOP1/2T m/s Asc. 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 Arboleda TAPE# PACS Pericardial Effusion N DATE OF SERVICE: 03/29/2019 ECHOCARDIOGRAM DATE OF SERVICE: 03/29/2019 FINDINGS: 1. Left ventricular chamber size is within normal limits. Left ventricular systolic function is normal. Overall ejection fraction estimated at 60%. 2. Left atrium, right atrium, and right ventricle chamber sizes are within ECHOCARDIOGRAM REPORT [id number] GINNA CAROLINA normal limits. 3. Valvular structures: Aortic valve demonstrates moderate calcific aortic stenosis, valve area calculates 1.2 cm-squared and has a gradient 56 mm across the valve. The remaining valvular structures have normal structure and motion. 4. Doppler interrogation elsewise reveals mild aortic insufficiency, moderate mitral regurgitation, mild tricuspid regurgitation, no other valvular insufficiency or stenosis. Pulmonary systolic pressure is estimated at 21 mmHg. 5. No evidence of pericardial effusion or left ventricular thrombus. TRANSINT:[id number] Voice Confirmation ID: [id number] DOCUMENT ID: [id number] EWELINA ARBOLEDA MD at 1325 CC: [id number] DICTATION DATE: 03/29/191712 SALES COUNSELOR: 03/29/19 175 DEP CLI 03/29/19 [place] [id number] [place] [id number]
== END | disposition home or self-care (01) ==
LOC: D.HCCARDIO 12:29
PROVIDERS: ATTEND Internal Medicine Interventional Cardiology
DX: I34.0 Nonrheumatic mitral (valve) insufficiency (principal)

== ENCOUNTER 2019-05-18 11:15 | Inpatient (IN) | payer MEDICARE, BC ==
[2019-05-18] VITALS (14 sets, daily range): BP systolic 143–191; BP diastolic 74–118; BMI 18.1
[~2019-05-18] VITALS: Ht 165.1 cm; Wt 60.9 kg
--- NOTE | ~2019-05-18 | HEMODYNAMI ---
PATIENT:GINNA CAROLINA MEDICAL RECORD: [id number] : 46 [facility] [id number] ADMISSION DATE: 05/18/19 Generatedon:05/18/201917:04 Patient name: GINNA CAROLINA Patient #: [id number] SSN: : [id number] Date of study: 05/18/2019 Page: Of Hemodynamic Procedure Report Patient Data Patient Demographics Procedure consent was obtained First Name: GINNA Gender: Female Last Name: CAITY : 1950 [facility] Initial: JOSÉ MIGUEL Age: 68 year(s) Patient #: [id number] Race: Unknown Additional ID: [id number] Contact details [address]: [address] [place] [address] State: [place] City: [place] Zip code: [address] Past Medical History Allergies Allergen Reaction Date Comments Reported Penicillins 07/18/2018 Other allergy 05/18/2019 PENICILLINS Admission Admission Data Admission Date: 05/18/2019 Admission Time: 13:50 Room #: D.2104 Procedure Procedure Types Cath Procedure Peripheral Cath Diagnostic Procedure Abd/Extremity Extremities Bilat Lower Extremity Procedure Description Procedure Date Procedure Date: 05/18/2019 Procedure Start Time: 14:55 Procedure Staff Name Function Renata Clomenares MD Performing Physician Randell Dunn RT Monitor Sheila Jurado RN Nurse SPARKLE MENJIVAR RT Scrub Procedure Data Cath Procedure Fluoroscopy Diagnostic fluoroscopy Total fluoroscopy Time: time: 26.8 min 26.8 min Diagnostic fluoroscopy Total fluoroscopy dose: 247 dose: 247 mGy mGy Contrast Material Contrast Material Type Amount (ml) Isovue 300 80 Procedure Medications Medication Administration Route Dosage Heparin Flush Bag added to field 3 bags (1000units/500ml NS) Lidocaine 1% added to field 20 Versed I.V. 1 mg Fentanyl I.V. 50 mcg Versed I.V. 1 mg Fentanyl I.V. 50 mcg Heparin Bolus I.V. 4000 units Versed I.V. 1 mg Fentanyl I.V. 50 mcg Versed I.V. 1 mg Fentanyl I.V. 50 mcg Hemodynamics Rest Heart Rate: 60 (bpm) Snapshots Pre Cath Intra NCS Post Cath Vital Signs Time Heart Resp SPO2 etCO2 NIBP (mmHg) Rhythm Pain Sedation Rate (ipm) (%) (mmHg) Status Level (bpm) 14:43:39 61 13 94 25.5 Measuring NSR 0 (11) 10(A) , No pain 14:44:09 60 8 100 33.7 200/95(173) NSR 0 (11) 10(A) , No pain 14:48:40 60 5 100 25.4 201/95(156) NSR 0 (11) 10(A) , No pain 14:53:10 61 25 100 33.7 187/98(153) NSR 0 (11) 10(A) , No pain 14:57:36 59 11 100 31.5 196/93(152) NSR 0 (11) 10(A) , No pain 14:59:41 59 100 2.2 185/89(146) NSR 0 (11) 10(A) , No pain 15:04:10 58 0 100 38.2 159/82(144) NSR 0 (11) 10(A) , No pain 15:08:26 59 8 99 0 169/89(136) NSR 0 (11) 10(A) , No pain 15:12:49 59 0 100 0 180/82(150) NSR 0 (11) 10(A) , No pain 15:17:16 61 8 100 0 172/84(142) NSR 0 (11) 10(A) , No pain 15:21:36 62 12 98 0 175/89(148) NSR 0 (11) 10(A) , No pain 15:25:56 64 8 100 20.2 187/102(163) NSR 0 (11) 10(A) , No pain 15:30:27 61 11 0 158/80(134) NSR 0 (11) 10(A) , No pain 15:34:47 60 11 99 29.9 153/79(136) NSR 0 (11) 10(A) , No pain 15:39:05 62 4 100 17.2 168/80(142) NSR 0 (11) 10(A) , No pain 15:43:25 62 13 100 0 180/88(146) NSR 0 (11) 10(A) , No pain 15:47:47 61 10 100 0 180/87(153) NSR 0 (11) 10(A) , No pain 15:52:09 63 12 99 13.4 195/94(165) NSR 0 (11) 10(A) , No pain 15:56:39 62 13 0 174/87(145) NSR 0 (11) 10(A) , No pain 16:01:04 61 8 0 168/80(132) NSR 0 (11) 10(A) , No pain 16:05:24 61 11 0 175/84(136) NSR 0 (11) 10(A) , No pain 16:09:48 62 18 32.9 166/83(138) NSR 0 (11) 10(A) , No pain 16:14:47 60 15 1.4 Measuring NSR 0 (11) 10(A) , No pain 16:15:01 63 12 100 24.7 172/92(104) NSR 0 (11) 10(A) , No pain 16:19:24 60 9 100 0 182/88(143) NSR 0 (11) 10(A) , No pain 16:23:48 62 19 0 173/90(155) NSR 0 (11) 10(A) , No pain 16:28:47 61 5 35.2 Measuring NSR 0 (11) 10(A) , No pain 16:29:15 61 11 100 38.9 192/101(153) NSR 0 (11) 10(A) , No pain 16:33:44 58 11 11.2 193/89(156) NSR 0 (11) 10(A) , No pain 16:38:14 57 18 8.9 185/86(157) NSR 0 (11) 10(A) , No pain 16:42:38 62 12 100 24.7 183/96(154) NSR 0 (11) 10(A) , No pain 16:47:38 59 10 35.9 Measuring NSR 0 (11) 10(A) , No pain 16:48:14 59 15 33.7 198/87(164) NSR 0 (11) 10(A) , No pain 16:52:45 60 7 31.4 194/88(159) NSR 0 (11) 10(A) , No pain 16:57:11 62 18 76 19.4 185/103(140) NSR 0 (11) 10(A) , No pain 17:02:10 60 10 66 32.9 Measuring NSR 0 (11) 10(A) , No pain 17:02:45 59 13 32.9 204/99(161) NSR 0 (11) 10(A) , No pain Medications Time Medication Route Dose Verified Delivered Reason Notes Effe ctiveness by by 14:58:58 Heparin Flush added 3 M J Long M J Long used for Bag to bags MD LARSON procedure (1000units/500ml field NS) 14:59:13 Lidocaine 1% added 20ml M J Long M J Long for local to vial MD LARSON anesthetic field 14:59:26 Versed I.V. 1 mg M J Long Sheila for MD Adrien MENA sedation 14:59:35 Fentanyl I.V. 50 M J Long Sheila for mcg MD Adrien MENA sedation 15:13:58 Versed I.V. 1 mg M J Long Sheila for MD Adrien MENA sedation 15:14:07 Fentanyl I.V. 50 M J Long Sheila for mcg MD Adrien MENA sedation 15:30:07 Heparin Bolus I.V. 4000 M J Long Sheila Per units MD Adrien MENA physician 15:50:07 Versed I.V. 1 mg M J Long Sheila for MD Adrien MENA sedation 15:50:14 Fentanyl I.V. 50 M J Long Sheila for sera Jurado RN sedation 16:07:16 Versed I.V. 1 mg M J Long Sheila for MD Adrien MENA sedation 16:07:30 Fentanyl I.V. 50 M J Long Sheila for sera Jurado RN sedation Procedure Log Time Note 14:19:03 Sheila Jurado RN sent for patient. Start room use. 14:19:05 Time tracking: Regular hours (M-F 7:00 - 5:00) 14:19:11 Plan of Care:Hemodynamics will remain stable., Cardiac rhythm will remain stable., Comfort level will be maintained., Respiratory function will remain adequate., Patient/ family verbilizes understanding of procedure., Procedure tolerated without complication., Recovers from procedure without complications.. 14:19:18 Patient received from ED to IR Alert and oriented. Tansferred to table in Supine position. 14:19:20 Signed procedure consent form obtained from patient. 14:19:23 Correct patient and procedure confirmed by team. 14:19:25 ECG and BP/O2 sat monitors applied to patient. 14:19:26 - 14:29:10 H&P Date Dictated: 05/18/2019 ER History on chart.. 14:29:12 Pre-procedure instructions explained to patient. 14:29:14 Pre-op teaching completed and patient verbalized understanding. 14:29:28 Family in waiting room. 14:29:46 Patient allergic to Other allergyPENICILLINS 14:29:49 Is the patient allergic to Iodine/contrast media? No. 14:30:23 Is patient on blood thinner?Yes 14:30:32 ACC The patient was administered the following blood thiners within the last 24 hours: ACCAspirin 14:31:23 Patient diabetic? Yes. 14:31:26 If diabetic: On Metformin? No 14:31:34 - 14:31:38 Snore? No 14:31:39 Sleep apnea? No 14:31:44 Deviated septum? No 14:31:45 Opens mouth fully? Yes 14:31:46 Sticks out tongue? Yes 14:31:51 Dentures? No ? 14:31:55 - 14:32:42 IV patent on arrival in right antecubital with 0.9% NaCl at [facility]. 14:32:59 Right groin area was prepped with chlora-prep and draped in sterile fashion 14:33:02 Alarms reviewed by RDarren NDarren 14:33:03 Sharps counted by scrub and verified by RDarrenNDarren 14:33:04 - 14:41:34 Use device set IR Diagnostic 14:41:35 Tegaderm 4 x 4 (1626W) opened to sterile field. 14:41:36 Sterile Angiographic Pack opened to sterile field. 14:41:36 Bag Decanter (2002S) opened to sterile field. 14:41:37 ACIST Manifold (54500) opened to sterile field. 14:41:38 ACIST Hand Control (96344) opened to sterile field. 14:41:38 ACIST Syringe (22598) opened to sterile field. 14:41:48 Vital chart was started 14:41:49 Baseline sample Acquired. 14:41:50 Full Disclosure recording started 14:43:45 Pre procedure: right dorsailis pedis pulse Doppler 14:43:50 Pre procedure: left dorsailis pedis pulse 0-Absent 14:44:36 Pre procedure: right posterior tibial pulse Doppler 14:54:57 Physician arrived 14:54:57 --------ALL STOP TIME OUT------ 14:54:58 Final Timeout: patient, procedure, and site verified with staff and physician. All members of the team are in agreement. 14:54:59 Right groin site verified by team. 14:55:03 Fire Safety Assessment: A--An alcohol-based skin anteseptic being used preoperatively., C--Open oxygen or nitrous oxide is being used. 14:55:11 Sedation plan: IV Moderate Sedation Medication:Versed, Fentanyl 14:55:16 Procedure started. 14:55:20 Local anesthetic to right femoral artery with Lidocaine 1% by Renata Colmenares MD.INITIAL ACCESS ONLY 14:56:30 MICROPUNCTURE 4FR Cook (D90737) opened to sterile field. 14:56:30 SHEATH 5FR Criders (JTI038) opened to sterile field. 14:56:31 DOC .035 wire (S38918) opened to sterile field. 14:56:31 Angiodynamics Omniflush 5Fr 65cm (26538738) opened to sterile field. 14:56:41 TUBING Contrast Injection High Pressure (KUS030F) opened to sterile field. 14:58:58 Heparin Flush Bag (1000units/500ml NS) 3 bags added to field was administered by Renata Colmenares MD; used for procedure; 14:59:13 Lidocaine 1% 20ml vial added to field was administered by Renata Colmenares MD; for local anesthetic; 14:59:26 Versed 1 mg I.V. was administered by Sheila Jurado RN; for sedation; 14:59:35 Fentanyl 50 mcg I.V. was administered by Sheila Jurado RN; for sedation ; 15:05:37 GLIDE WIRE MERIT Angled 260cm ([id number]) opened to sterile field. 15:05:51 TORQUE DEVICE PLASTIC .038 ( TD01) opened to sterile field. 15:07:58 GLIDE CATHETER 5FR COBRA 65cm (CG502) opened to sterile field. 15:13:39 CXI SUPPORT .035 135 CM STR catheter (T09543) opened to sterile field. 15:13:58 Versed 1 mg I.V. was administered by Sheila Jurado RN; for sedation; 15:14:07 Fentanyl 50 mcg I.V. was administered by Sheila Jurado RN; for sedation ; 15:15:03 RUSHING 260 wire (H19809) opened to sterile field. 15:16:12 SHEATH 6FR Destination (RSR01) opened to sterile field. 15:18:08 CHOICE PT Extra Support J 300cm guide wire ([id number]) opened to steril e field. 15:30:07 Heparin Bolus 4000 units I.V. was administered by Sheila Jurado RN; Per physician; 15:31:15 Hawkone Medium Atherectomy System (H1-M) opened to sterile field. 15:50:07 Versed 1 mg I.V. was administered by Sheila Adrien RN; for sedation; 15:50:14 Fentanyl 50 mcg I.V. was administered by Sheila Jurado RN; for sedation ; 15:58:29 Protege 5 x 30 Stent ([id number]) was deployed across Undefined1 . 16:02:48 INFLATOR BasixTOUCH (ZZ0969) opened to sterile field. 16:07:16 Versed 1 mg I.V. was administered by Sheila Jurado RN; for sedation; 16:07:30 Fentanyl 50 mcg I.V. was administered by Sheila Jurado RN; for sedation ; 16:11:30 Inflate balloon Inflation number: 1 A Evercross 5 x 2 x 135 Balloon ([id number]) was prepped and advanced across the Undefined1 , then inflated 16:15:05 GLIDE WIRE MERIT Angled 260cm ([id number]) opened to sterile field. 16:15:06 CXI SUPPORT .035 135 CM STR catheter (U54627) opened to sterile field. 16:17:44 INFUSION CATHETER 10cm NatalyCarlos (3726952) opened to sterile field . 16:22:22 Procedure ended.(Physican Out) 16:22:51 Fluoroscopy time 26.80 minutes. 16:22:54 Fluoroscopy dose: 247 mGy 16:22:54 Flurop Dose total: 247 16:23:00 Contrast amount:Isovue 300 80ml. 16:23:02 Sharps counted by scrub and verified by R.N. 16:23:04 Insertion/operative site no bleeding no hematoma. 16:23:10 Post-op/insertion site Right Femoral artery dressed using a 4 x 4 and Tegaderm. 17:03:17 Post Procedure Pulses reassessed and unchanged 17:03:21 Post procedure instruction explained to patient.Patient verbalizes understanding. 17:03:22 Procedure and supply charges have been captured, reviewed, submitted an d are correct. 17:03:24 Report given to ICU. 17:03:29 Patient transfered to ICU with Bed. 17:04:00 Vital chart was stopped Intervention Summary Intervention Notes Time ActionType Lesion and Equipment Used Action# Pressure Duration Attributes 15:58:29 Deploy self Undefined1 Protege 5 x 30 1 expanding Stent stent ([id number]) 16:11:30 Inflate Undefined1 Evercross 5 x 2 1 0 00:06 balloon x 135 Balloon ([id number]) Device Usage Item Name Manufacture Quantity Catalog Number Hospital Part Shiva nt Minimal Lot# / Charge Number Stock Stock Serial# Code Tegaderm 4 x 4 3M 1 1626W 780892 975109 19496 2 5 (1626W) Sterile Cardinal 1 [id number] 199428 50544 2 5 Angiographic Health Pack Bag Decanter Microtek 1 2001S 078143 66023 83206 6 5 () Medical Inc. ACIST Manifold Acist Medical 1 45686 511951 090659 82043 8 5 (55723) Systems Inc ACIST Hand Acist Medical 1 22357 955756 907862 40988 1 5 Control (24544) Systems Inc ACIST Syringe Acist Medical 1 92931 387785 881935 68351 3 20 (59268) Systems Inc MICROPUNCTURE Cook Medical 1 X00763 820371 896326 15311 7 5 4FR Cook (O73752) SHEATH 5FR Terumo 1 CUB846 509781 789739 11395 9 5 Criders (IHR530) DOC .035 wire [facility] 1 A52336 684518 43854 5 5 (Y26120) Angiodynamics Angiodynamics 1 71539607 930904 745072 64730 9 5 Omniflush 5Fr 65cm (12673202) TUBING Contrast [facility] 1 JCR594W 253296 073558 63433 5 5 Injection High Pressure (MJG985R) GLIDE WIRE [facility] 2 [id number] 808094 664351 60398 5 5 [id number] MERIT Angled [id number] 260cm ([id number]) TORQUE DEVICE [place] 1 TD01 327970 761036 92203 9 5 PLASTIC .038 ( Scientific TD01) GLIDE CATHETER Terumo 1 CG502 327384 32560 3 5 5FR COBRA 65cm (CG502) CXI SUPPORT [employer] 2 U99624 912202 045809 27400 0 5 [id number] .035 135 CM STR 4978239 catheter (P75710) RUSHING 260 wire [employer] 1 E60390 961015 61120 99417 8 5 (Q15281) SHEATH 6FR Terumo 1 RSR01 134829 65958 64915 3 5 Destination (RSR01) CHOICE PT Extra [place] 1 [id number] 649520 804051 09792 0 5 [id number] Support J 300cm Scientific guide wire (5788679V5) Hawkone Medium Medtronic 1 H1-M 675141 54688 974 5 [id number] Atherectomy System (H1-M) Protege 5 x 30 Medtronic 1 JKE50-12-293-675 241097 646954 85205 6 5 [id number] Stent A769501 ([id number]) INFLATOR [facility] 1 CY9942 167168 117005 04621 4 5 BasixTOUCH (ET2585) Evercross 5 x 2 Medtronic 1 [id number] 693700 691120 15264 7 5 [id number] x 135 Balloon ([id number]) INFUSION Medtronic 1 61142-39 990401 16047 1 5 CATHETER 10cm [place] (9899703) Signature Audit [place] Stage Time Signature Unsigned Intra-Procedure 05/18/2019 Randell 5:03:54 PM [place] RT (R) (CV) Signatures Monitor : Randell Signature : Shaun RT Date : Time : [address] [place] [address]
--- NOTE | ~2019-05-18 | HEMODYNAMI ---
PATIENT:GINNA CAROLINA MEDICAL RECORD: [id number] : 46 LOCATION:[facility] D.2308 ADMISSION DATE: 05/18/19 Generatedon:05/19/201917:04 Patient name: GINNA CAROLINA Patient #: [id number] SSN: : 1950 Date of study: 05/19/2019 Page: Of Hemodynamic Procedure Report Patient Data Patient Demographics Procedure consent was obtained First Name: GINNA Gender: Female Last Name: CAITY : 1950 [facility] Initial: JOSÉ MIGUEL Age: 68 year(s) Patient #: [id number] Race: Unknown Additional ID: [id number] Contact details [address]: [address] [place] [address] State: [place] City: [place] Zip code: [address] Past Medical History Allergies Allergen Reaction Date Comments Reported Penicillins 07/18/2018 Other allergy 05/18/2019 PENICILLINS Other allergy 05/19/2019 PENICILLINS Admission Admission Data Admission Date: 05/18/2019 Admission Time: 13:50 Room #: D.2308 Procedure Procedure Types Cath Procedure Peripheral vascular Intervention Thrombolysis/Thrombectomy Thrombolysis Catheter Removal Procedure Description Procedure Date Procedure Date: 05/19/2019 Procedure Start Time: 15:20 Procedure End Time: 17:01 Procedure Staff Name Function Scott Sabillon MD Performing Physician SPARKLE MENJIVAR RT Monitor Sheila Jurado RN Nurse Randell Dunn RT Scrub Procedure Data Cath Procedure Fluoroscopy Diagnostic fluoroscopy Total fluoroscopy Time: time: 18.7 min 18.7 min Entry Location Entry Primary Successful Side Size Upsize Upsize Entry Closure Succes sful Closure Location (Fr) 1 (Fr) 2 (Fr) Remarks Device Remarks Femoral Right 6 Fr Exoseal artery Short Procedure Medications Medication Administration Route Dosage Heparin Flush Bag added to field 2 bags (1000units/500ml NS) Heparin Bolus I.V. 4000 units Benadryl I.V. 25 mg Versed I.V. 1 mg Fentanyl I.V. 50 mcg Integrilin (Bolus 4.5 ml 2mg/ml) Heparin Bolus I.V. 2000 units Versed I.V. 1 mg Fentanyl I.V. 50 mcg Fentanyl I.V. 50 mcg Versed I.V. 1 mg Hemodynamics Rest Heart Rate: 61 (bpm) Snapshots Pre Cath Intra NCS Post Cath Vital Signs Time Heart Resp SPO2 etCO2 NIBP (mmHg) Rhythm Pain Sedation Rate (ipm) (%) (mmHg) Status Level (bpm) 15:10:45 61 2 0 128/65(107) NSR 0 (11) 10(A) , No pain 15:14:58 60 13 100 28.4 127/65(111) NSR 0 (11) 10(A) , No pain 15:19:09 59 10 100 23.9 141/72(121) NSR 0 (11) 10(A) , No pain 15:23:22 59 11 100 30.7 140/76(122) NSR 0 (11) 10(A) , No pain 15:28:21 61 10 100 41.9 Measuring NSR 0 (11) 10(A) , No pain 15:28:40 60 10 100 37.4 143/68(120) NSR 0 (11) 10(A) , No pain 15:32:58 67 9 98 0 130/66(106) NSR 0 (11) 10(A) , No pain 15:37:14 64 10 100 50.9 117/60(96) NSR 0 (11) 10(A) , No pain 15:41:24 63 10 100 45.7 110/61(93) NSR 0 (11) 10(A) , No pain 15:46:23 61 13 40.4 Measuring NSR 0 (11) 10(A) , No pain 15:46:31 61 13 42.7 122/63(106) NSR 0 (11) 10(A) , No pain 15:50:37 64 15 99 36.7 140/76(120) NSR 0 (11) 10(A) , No pain 15:54:53 63 12 100 23.9 128/65(108) NSR 0 (11) 10(A) , No pain 15:59:01 61 13 99 48.7 136/78(102) NSR 0 (11) 10(A) , No pain 16:03:13 62 8 100 47.2 151/78(119) NSR 0 (11) 10(A) , No pain 16:08:12 60 17 100 34.4 Measuring NSR 0 (11) 10(A) , No pain 16:08:28 61 16 100 26.9 129/66(117) NSR 0 (11) 10(A) , No pain 16:13:27 61 14 100 32.2 Measuring NSR 0 (11) 10(A) , No pain 16:13:44 62 13 100 33.7 167/72(136) NSR 0 (11) 10(A) , No pain 16:18:12 62 4 78 40.4 119/60(98) NSR 0 (11) 10(A) , No pain 16:22:24 62 14 100 47.1 112/56(91) NSR 0 (11) 10(A) , No pain 16:27:19 66 24 99 37.4 56/44(54) NSR 0 (11) 10(A) , No pain 16:30:13 71 18 13.4 56/44(54) NSR 0 (11) 10(A) , No pain 16:32:26 66 16 38.9 Disturbed NSR 0 (11) 10(A) , No pain 16:33:54 73 15 0 149/95(136) NSR 0 (11) 10(A) , No pain 16:38:22 70 6 28.4 75/34(54) NSR 0 (11) 10(A) , No pain 16:41:57 73 27 23.1 75/30(68) NSR 0 (11) 10(A) , No pain 16:43:44 65 7 0 125/61(96) NSR 0 (11) 10(A) , No pain 16:47:52 71 14 26.9 76/51(69) NSR 0 (11) 10(A) , No pain 16:51:37 70 16 17.2 142/78(125) NSR 0 (11) 10(A) , No pain 16:56:36 71 15 80 24.6 Measuring NSR 0 (11) 10(A) , No pain 16:57:05 72 10 95 0 100/65(94) NSR 0 (11) 10(A) , No pain Medications Time Medication Route Dose Verified Delivered Reason Notes Effec tiveness by by 15:05:05 Heparin Flush added 2 Scott Chavez used for Bag to bags Ramandeep Sabillon procedure (1000units/500ml field MD LARSON NS) 15:15:42 Heparin Bolus I.V. 4000 Scott Sosa Per units Ramandeep Jurado RN physician 15:17:30 Benadryl I.V. 25 mg Scott Sosa for Ramandeep Jurado RN sedation 15:17:41 Versed I.V. 1 mg Scott Jefferyody for Ramandeep Jurado RN sedation 15:17:53 Fentanyl I.V. 50 Scott Sheila for mcg Ramandeep Jurado RN sedation 15:41:09 Integrilin ia 4.5 Scott Chavez Per (Bolus 2mg/ml) ml Ramandeep Sabillon physician MD LARSON 15:51:08 Heparin Bolus I.V. 2000 Scott Sosa Per units Ramandeep Jurado RN physician 16:04:21 Versed I.V. 1 mg Scott Sosa for Ramandeep Jurado RN sedation 16:04:28 Fentanyl I.V. 50 Scott Sheila for mcg Ramandeep Jurado RN sedation 16:41:12 Fentanyl I.V. 50 Scott Sheila for back mcg Ramandeep Jurado RN pain 16:56:45 Versed I.V. 1 mg Scott Sheila for Ramandeep Jurado RN sedation Procedure Log Time Note 14:54:05 Randell Dunn RT (R) (CV) sent for patient. Start room use. 14:54:07 Time tracking: Regular hours (M-F 7:00 - 5:00) 14:54:13 Plan of Care:Hemodynamics will remain stable., Cardiac rhythm will remain stable., Comfort level will be maintained., Respiratory function will remain adequate., Patient/ family verbilizes understanding of procedure., Procedure tolerated without complication., Recovers from procedure without complications.. 14:54:20 Patient received from ICU to IR Alert and oriented. Tansferred to table in Supine position. 14:54:22 Signed procedure consent form obtained from patient. 14:54:25 Correct patient and procedure confirmed by team. 14:54:26 ECG and BP/O2 sat monitors applied to patient. 14:54:28 - 14:54:59 Pre-procedure instructions explained to patient. 14:55:00 Pre-op teaching completed and patient verbalized understanding. 14:55:02 Family in waiting room. 14:55:03 Patient NPO since Midnight. 14:56:03 Patient allergic to Other allergy PENICILLINS 14:57:16 H&P Date Dictated: 05/18/2019 Within 30 days and on chart.. 14:57:20 Is the patient allergic to Iodine/contrast media? No. 14:57:21 Is patient on blood thinner?Yes. Aspirin 14:57:35 Patient diabetic? Yes. 14:57:36 If diabetic: On Metformin? No 14:57:38 - 14:57:42 Previous problem with sedation/anesthesia? No \ 14:57:44 Snore? No 14:57:46 Sleep apnea? No 14:57:47 Deviated septum? No 14:57:48 Opens mouth fully? Yes 14:57:49 Sticks out tongue? Yes 14:57:56 Airway obstruction? No ? 14:58:00 Dentures? No ? 14:58:42 IV patent on arrival in right antecubital with 0.9% NaCl at [facility]. 14:58:52 Right groin area was prepped with chlora-prep and draped in sterile fashion 14:58:54 Alarms reviewed by Amanda Carter 14:58:55 Sharps counted by scrub and verified by Marilu 14:59:03 - 14:59:28 Use device set IR Diagnostic 14:59:29 Tegaderm 4 x 4 (1626W) opened to sterile field. 14:59:30 Sterile Angiographic Pack opened to sterile field. 14:59:31 Bag Decanter (2002) opened to sterile field. 15:05:05 Heparin Flush Bag (1000units/500ml NS) 2 bags added to field was administered by Scott Sabillon MD; used for procedure; :: Vital chart was started 15:: Baseline sample Acquired. :: Full Disclosure recording started :: - 15:13:20 Physician arrived ::29 --------ALL STOP TIME OUT------ 15:13:54 Final Timeout: patient, procedure, and site verified with staff and physician. All members of the team are in agreement. 15:13:56 Right groin site verified by team. 15:14:00 Fire Safety Assessment: A--An alcohol-based skin anteseptic being used preoperatively., C--Open oxygen or nitrous oxide is being used. 15:15:15 Procedure started. 15:15:42 Heparin Bolus 4000 units I.V. was administered by Sheila Jurado RN; Per physician; 15:17:30 Benadryl 25 mg I.V. was administered by Sheila Jurado RN; for sedation; 15:17:41 Versed 1 mg I.V. was administered by Sheila Jurado RN; for sedation; 15:17:53 Fentanyl 50 mcg I.V. was administered by Sheila Jurado RN; for sedation ; 15:21:26 BENTSON 260 wire ([id number]) opened to sterile field. 15:21:27 CXI SUPPORT .035 135 CM STR catheter (Q48859) opened to sterile field. 15:21:27 CHOICE PT Extra Support J 300cm guide wire ([id number]) opened to steril e field. 15:24:46 CXI SUPPORT .018 150CM STR catheter ([id number]) opened to sterile field. 15:28:54 Inflate balloon Inflation number: 1 A Burleson Plus 2.5 x 150 x 130 Balloon ([id number]) was prepped and advanced across the Undefined1 , then inflated. 15:29:27 INFLATOR BasixTOUCH (NF4208) opened to sterile field. 15:34:08 COPILOT Valve Control ([id number]) opened to sterile field. 15:37:54 CHOICE PT Extra Support J 300cm guide wire ([id number]) opened to steril e field. 15:41:09 Integrilin (Bolus 2mg/ml) 4.5 ml ia was administered by Scott Sabillon MD; Per physician; 15:42:33 TREASURE 12 300cm wire ([id number]) opened to sterile field. 15:48:21 CHOICE PT Extra Support J 300cm guide wire ([id number]) opened to steril e field. 15:48:29 TORQUE DEVICE PLASTIC .038 ( TD01) opened to sterile field. 15:50:53 GLIDE WIRE GT ANGLED 45 DEGREE .018 ([id number]) opened to sterile field. 15:51:08 Heparin Bolus 2000 units I.V. was administered by Sheila Jurado RN; Per physician; 15:55:57 RUSHING 260 wire (F16330) opened to sterile field. 16:04:21 Versed 1 mg I.V. was administered by Sheila Jurado RN; for sedation; 16:04:28 Fentanyl 50 mcg I.V. was administered by Sheila Jurado RN; for sedation ; 16:05:50 Inflate balloon Inflation number: 2 A Burleson Plus 2.5x 120 x 130 Balloon ([id number]) was prepped and advanced across the Undefined1 , then inflated. 16:15:15 SHEATH 6FR [place] (NZL412) opened to sterile field. 16:18:13 EXOSEAL 6Fr (EX600) opened to sterile field. 16:18:52 A 6 Fr Short sheath was inserted into the Right Femoral artery 16:18:52 Sheath removed intact; hemostasis achieved with Exoseal to the Right Femoral artery. 16:19:52 Procedure ended.(Physican Out) 16:20:05 Fluoroscopy time 18.70 minutes. 16:20:10 Dose Area Product 59 mGy/cm. 16:20:13 Sharps counted by scrub and verified by R.N. 16:20:24 Post-op/insertion site Right Femoral artery dressed using a 4 x 4 and Tegaderm. 16:20:29 Post procedure instruction explained to patient.Patient verbalizes understanding. 16:20:33 Procedure and supply charges have been captured, reviewed, submitted an d are correct. 16:41:12 Fentanyl 50 mcg I.V. was administered by Sheila Jurado RN; for back pain; 16:56:45 Versed 1 mg I.V. was administered by Sheila Jurado RN; for sedation; 17:01:24 Vital chart was stopped 17::29 Procedure ended. 17:01:29 Full Disclosure recording stopped Intervention Summary Intervention Notes Time ActionType Lesion and Equipment Used Action# Pressure Duration Attributes 15:28:54 Inflate Undefined1 Burleson Plus 2 1 0 00:00 balloon x 150 x 130 Balloon ([id number]) 16:05:50 Inflate Undefined1 Burleson Plus 2 0 00:00 balloon 2.5x 120 x 130 Balloon ([id number]) Device Usage Item Name Manufacture Quantity Catalog Number Hospital Part Current Minimal Lot# / Charge Number Stock Stock Serial# Code Tegaderm 4 x 4 3M 1 [id number] [id number] 157009 5 (1626W) Sterile Cardinal 1 [id number] 960421 682771 5 Angiographic Health Pack Bag Decanter Microtek 1 2001S 949910 48968 988382 5 (2001S) Medical Inc. BENTSON 260 Cook Medical 1 [id number] 348841 824719 408278 5 wire ([id number]) CXI SUPPORT [employer] Medical 1 F12393 862999 121590 550671 5 9685828 .035 135 CM STR catheter (L96323) CHOICE PT [place] 3 [id number] 951580 756621 105994 5 [id number] Extra Support Scientific [id number] J 300cm guide [id number] wire ([id number]) CXI SUPPORT [employer] 1 H79217 801299 946777 726729 5 0069464 .018 150CM STR catheter ([id number]) Burleson Plus 2 Medtronic 1 [id number] 986266 175268 785616 5 x 150 x 130 Balloon ([id number]) INFLATOR Merit Medical 1 EM8612 890936 766330 454046 5 BasixTOUCH (KH5699) COPILOT Valve Mcpherson 1 2111945 557430 820005 882835 5 Control Vascular ([id number]) TREASURE 12 Cardiovascular 1 [id number] 893385 637075 677560 5 300cm wire systems ([id number]) TORQUE DEVICE [place] 1 TD01 610396 936078 230816 5 PLASTIC .038 ( Scientific TD01) GLIDE WIRE GT Terumo 1 [id number] 763245 610816 5 ANGLED 45 DEGREE .018 ([id number]) RUSHING 260 wire Cook Medical 1 P52374 946101 33712 777315 5 ([id number]) Burleson Plus Medtronic 1 [id number] 170779 155110 633008 5 2.5x 120 x 130 Balloon ([id number]) SHEATH 6FR Terumo 1 [id number] 406871 064889 663478 40 [place] ([id number]) EXOSEAL 6Fr Cardinal 1 EX600 791209 370394 328725 10 (EX600) Health Signature Audit Tyro Stage Time Signature Unsigned Intra-Procedure 05/19/2019 SPARKLE MENJIVAR RT 5:03:58 PM (R) Signatures Monitor : SPARKLE MENJIVAR RT Signature : Date : Time : [facility] [address] [place] [address]
--- NOTE | 2019-05-18 11:30 | NUR ---
UNABLE TO PLAPATE OR DOPPLER BILAT LE PULSES. 4+ BILAT FEMORAL PER DOPPLER. CHUY GOMES AT BS
[2019-05-18 12:22] LABS: BASOPHILS 0.7 % (0-2); EOSINOPHILS 0.9 % (0-7); HEMATOCRIT 39.8 % (36.0-48.0); HEMOGLOBIN 13.7 g/dL (12-16); IMMATURE GRANULOCYTES 0.3 % (0-5); LYMPHOCYTES 13.6 % (15-50); MCH 33.6 pg (26.0-34.0); MCHC 34.4 g/dL (31.0-37.0); MCV 97.5 fL (80.0-100.0); MEAN PLATELET VOLUME 9.9 fL (7.4-10.4); MONOCYTES 9.6 % (2-11); NEUTROPHILS 74.9 % (40-80); RBC 4.08 10x6/uL (4.00-5.40); RDW 13.4 % (11.5-14.5); WBC 6.9 10x3/uL (4.8-10.8)
[2019-05-18 12:24] LABS: APTT 26.1 SECONDS (22.8-39.4); PROTIME 12.7 SECONDS (11.6-15.0)
[2019-05-18 12:27] LABS: PLATELET COUNT 256 10x3/uL (130-400)
[2019-05-18 12:28] LABS: ANION GAP 14.6 mmol/L (8-16); BILIRUBIN - TOTAL 0.97 mg/dL (0.2-1.3); CALCIUM 9.1 mg/dL (8.5-10.1); CARBON DIOXIDE 30.9 mmol/L (21.0-32.0); CREATININE - SERUM 3.7 mg/dL (0.6-1.3); POTASSIUM - SERUM 3.5 mmol/L (3.5-5.1); PROTEIN - SERUM 8.2 g/dL (6.4-8.2)
--- NOTE | 2019-05-18 13:40 | NUR ---
TO IR VIA STRETCHER WITH TECH FOR PROCEDURE
--- NOTE | 2019-05-18 13:56 | NUR ---
ADMISSION ORDER PLACED AT 1335, TIANA CALLED FOR BED AT 1336. RM# [id number] GIVEN BY TIANA @ [facility].
[2019-05-18] MEDS ORDERED: FAMOTIDINE10 MG PO (14:03)
[2019-05-18] MEDS ORDERED: NEPHRO-VITE RX1 TAB PO (14:04)
[2019-05-18] MEDS ORDERED: EMLA CREAM 30 G30 G1 TOPICAL (14:04)
[2019-05-18 17:13] LABS: BASOPHILS 0.6 % (0-2); EOSINOPHILS 1.1 % (0-7); HEMATOCRIT 40.4 % (36.0-48.0); HEMOGLOBIN 13.8 g/dL (12-16); IMMATURE GRANULOCYTES 0.5 % (0-5); LYMPHOCYTES 23.7 % (15-50); MCH 33.3 pg (26.0-34.0); MCHC 34.2 g/dL (31.0-37.0); MCV 97.3 fL (80.0-100.0); MONOCYTES 13.5 % (2-11); NEUTROPHILS 60.6 % (40-80); PLATELET COUNT 207 10x3/uL (130-400); RBC 4.15 10x6/uL (4.00-5.40); RDW 13.3 % (11.5-14.5); WBC 8.1 10x3/uL (4.8-10.8)
--- NOTE | 2019-05-18 17:21 | NUR ---
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
[2019-05-18 17:53] LABS: FIBRINOGEN 475 mg/dL (239-481)
[2019-05-18 17:57] LABS: INR 1.26 (0.85-1.17); PROTIME 15.3 SECONDS (11.6-15.0)
[2019-05-18 18:29] LABS: APTT > 200.0 SECONDS (22.8-39.4)
--- NOTE | 2019-05-18 19:00 | NUR ---
SHIFT ASSESSMENT COMPLETE. VS STABLE. NO VISUAL CUES OF DISTRESS NOTED. WILL CONTINUE TO MONITOR,
--- NOTE | 2019-05-18 21:00 | NUR ---
VITAL SIGNS STABLE. NO VISUAL CUES OF DISTRESS NOTED. WILL CONTINUE TO MONITOR.
--- NOTE | 2019-05-18 23:00 | NUR ---
VITAL SIGNS STABLE. NO VISUAL CUES OF DISTRESS NOTED. WILL CONTINUE TO MONITOR.
[2019-05-19] VITALS (44 sets, daily range): BP systolic 40–158; BP diastolic 26–85; Ht 165.1 cm; Wt 60.9 kg
[2019-05-19 00:17] LABS: BASOPHILS 0.6 % (0-2); EOSINOPHILS 0.7 % (0-7); HEMATOCRIT 38.8 % (36.0-48.0); HEMOGLOBIN 12.9 g/dL (12-16); IMMATURE GRANULOCYTES 0.3 % (0-5); LYMPHOCYTES 17.5 % (15-50); MCHC 33.2 g/dL (31.0-37.0); MCV 99.2 fL (80.0-100.0); MEAN PLATELET VOLUME 9.6 fL (7.4-10.4); MONOCYTES 9.9 % (2-11); PLATELET COUNT 205 10x3/uL (130-400); RBC 3.91 10x6/uL (4.00-5.40); RDW 13.5 % (11.5-14.5); WBC 8.7 10x3/uL (4.8-10.8)
[2019-05-19 00:26] LABS: INR 1.12 (0.85-1.17); PROTIME 13.9 SECONDS (11.6-15.0)
--- NOTE | 2019-05-19 01:00 | NUR ---
VITAL SIGNS STABLE. NO VISUAL CUES OF DISTRESS NOTED. WILL CONTINUE TO MONITOR.
--- NOTE | 2019-05-19 03:00 | NUR ---
VITAL SIGNS STABLE. NO VISUAL CUES OF DISTRESS NOTED. WILL CONTINUE TO MONITOR.
[2019-05-19 04:18] LABS: BASOPHILS 0.6 % (0-2); EOSINOPHILS 0.7 % (0-7); HEMATOCRIT 38.1 % (36.0-48.0); HEMOGLOBIN 12.7 g/dL (12-16); IMMATURE GRANULOCYTES 0.2 % (0-5); LYMPHOCYTES 15.3 % (15-50); MCH 32.9 pg (26.0-34.0); MCHC 33.3 g/dL (31.0-37.0); MCV 98.7 fL (80.0-100.0); MEAN PLATELET VOLUME 9.7 fL (7.4-10.4); NEUTROPHILS 72.2 % (40-80); PLATELET COUNT 209 10x3/uL (130-400); RBC 3.86 10x6/uL (4.00-5.40); RDW 13.6 % (11.5-14.5); WBC 8.7 10x3/uL (4.8-10.8)
[2019-05-19 04:21] LABS: APTT 38.9 SECONDS (22.8-39.4); INR 1.1 (0.85-1.17); PROTIME 13.7 SECONDS (11.6-15.0)
[2019-05-19 04:32] LABS: ALBUMIN 3.1 g/dL (3.4-5.0); BILIRUBIN - TOTAL 0.57 mg/dL (0.2-1.3); CALCIUM 8.6 mg/dL (8.5-10.1); CARBON DIOXIDE 25.7 mmol/L (21.0-32.0); MAGNESIUM - SERUM 1.9 mg/dL (1.8-2.4); PHOSPHOROUS 8.5 mg/dL (2.5-4.9); PROTEIN - SERUM 6.7 g/dL (6.4-8.2)
[2019-05-19 04:35] LABS: CREATININE - SERUM 5.3 mg/dL (0.6-1.3); POTASSIUM - SERUM 4.7 mmol/L (3.5-5.1)
--- NOTE | 2019-05-19 05:00 | NUR ---
VITAL SIGNS STABLE. NO VISUAL CUES OF DISTRESS NOTED. WILL CONTINUE TO MONITOR.
--- NOTE | 2019-05-19 07:46 | NUR ---
0700 DR FOLEY AT BEDSIDE NOEL FROM IR AT BEDSIDE ACCESSIND BLE PULSES WITH DOPPLER PRESENT POST TIBIAL
--- NOTE | 2019-05-19 07:48 | NUR ---
0745 C/O PAIN 06/20 BLR MORPHINE 4MG GIVEN IV TO RIGHT AC SITE
--- NOTE | 2019-05-19 07:49 | NUR ---
0748 WARM BLANKET PLACED OVER ESTELITA FEET FOR INCREASED CIRCULATION AND COMFORT
--- NOTE | 2019-05-19 09:25 | NUR ---
0835 LIDOCREAM APPLIED TO TOES ON BOTH FEET
--- NOTE | 2019-05-19 09:26 | NUR ---
0926 NOTIFIED MATERIALS FOR KNEE IMMOBILIZER FOR RIGHT LEG TO KEEP LEG FLAT R/T RIGHT GROIN SHEATH. BLOOD DRAINAGE NOTED TO DRESSING TO SHEATH. IR STAFF PRESENT NOTED PP PRESENT WITH DOPPLER USE ONLY INFORMED IR STAFF OF BLOODY DRAINAGE TO SHEATH. SAID NOT TO CHANGE DRESSING AT THIS TIME. PROCEEDURE IN IR SCHEDULED FOR 1300 TODAY
[2019-05-19] MEDS ORDERED: PEPCID40 MG PO (10:22)
[2019-05-19 12:10] LABS: BASOPHILS 0.5 % (0-2); EOSINOPHILS 1.6 % (0-7); HEMATOCRIT 31.7 % (36.0-48.0); HEMOGLOBIN 10.8 g/dL (12-16); IMMATURE GRANULOCYTES 0.2 % (0-5); LYMPHOCYTES 16.4 % (15-50); MCH 32.9 pg (26.0-34.0); MCHC 34.1 g/dL (31.0-37.0); MEAN PLATELET VOLUME 10.2 fL (7.4-10.4); MONOCYTES 10.8 % (2-11); NEUTROPHILS 70.5 % (40-80); PLATELET COUNT 236 10x3/uL (130-400); RBC 3.28 10x6/uL (4.00-5.40); RDW 13.4 % (11.5-14.5); WBC 9.4 10x3/uL (4.8-10.8)
[2019-05-19 12:14] LABS: MCV 96.6 fL (80.0-100.0)
[2019-05-19 12:26] LABS: INR 1.17 (0.85-1.17); PROTIME 14.4 SECONDS (11.6-15.0)
[2019-05-19 12:27] LABS: APTT 38.2 SECONDS (22.8-39.4)
--- NOTE | 2019-05-19 12:50 | NUR ---
1030 SLEEPING QUIETLY RIGHT NEE IMOBILLIZER IN PLACE
--- NOTE | 2019-05-19 12:51 | NUR ---
1200 SPOUSE AT BEDSIDE EMOTIONAL SUPPORT GIVEN
--- NOTE | 2019-05-19 12:52 | NUR ---
1145 TPA LINE PUMP CONTINUES TO BEEP OCCLUDED NOTIFIES RASHAAD IN SPECIALS TO COME TROUBLESHOOT RASHAAD RESTARTED AND IT DID NOT BEEP AGAIN
--- NOTE | 2019-05-19 15:16 | NUR ---
1500 RADIOLOGY STAFF TRANSPORTED PT TO SPECIALS
--- NOTE | 2019-05-19 17:15 | NUR ---
UPDATE GIVEN TO DR. PEDRO, START LEVOPED GTT AT 30 MCG/MIN
--- NOTE | 2019-05-19 17:30 | NUR ---
SPOKE TO DR. PEDRO ON PHONE ABOUT PT UNRESPONSIVENESS, APNEA, AND HYPOTENSION. EXPLAINED ER DOC IS INTUBATING, AND LEVOPHED WAS STARTED. OBTAINED OTHER ORDERS.
--- NOTE | 2019-05-19 17:45 | NUR ---
OK TO START DOPAMINE OFF @ 20 MCG/KG/MIN
[2019-05-19 18:00] LABS: EOSINOPHILS 1.5 % (0-7); HEMATOCRIT 26.7 % (36.0-48.0); IMMATURE GRANULOCYTES 0.4 % (0-5); LYMPHOCYTES 19.2 % (15-50); MCH 33.1 pg (26.0-34.0); MCHC 33.7 g/dL (31.0-37.0); MCV 98.2 fL (80.0-100.0); MEAN PLATELET VOLUME 9.6 fL (7.4-10.4); MONOCYTES 9.3 % (2-11); NEUTROPHILS 68.6 % (40-80); PLATELET COUNT 254 10x3/uL (130-400); RBC 2.72 10x6/uL (4.00-5.40); RDW 13.5 % (11.5-14.5); WBC 8.1 10x3/uL (4.8-10.8)
--- NOTE | 2019-05-19 18:00 | NUR ---
CALLED DR. MCCOY FOR CENTRAL LINE. FAMILY IN ROOM. PATIENT ON 3 VASOPRESSORS STILL EXTREMELY HYPOTENSIVE.
[2019-05-19 18:09] LABS: INR 1.5 (0.85-1.17); PROTIME 17.5 SECONDS (11.6-15.0)
[2019-05-19 18:13] LABS: APTT 154.2 SECONDS (22.8-39.4)
--- NOTE | 2019-05-19 19:00 | NUR ---
BLOOD TRANSFUSION STARTED
--- NOTE | 2019-05-19 19:00 | NUR ---
SHIFT ASSESSMENT COMPLETE. VS STABLE. WILL CONTINUE TO MONITOR.
--- NOTE | 2019-05-19 21:00 | NUR ---
VS STABLE. WILL MONITOR.
--- NOTE | 2019-05-19 23:00 | NUR ---
VSS. WILL CONTINUE TO MONITOR.
[2019-05-20] VITALS (96 sets, daily range): BP systolic 90–139; BP diastolic 46–97
--- NOTE | 2019-05-20 01:00 | NUR ---
VSS. WILL CONTINUE TO MONITOR.
[2019-05-20 02:48] LABS: HEMATOCRIT 34.1 % (36.0-48.0)
--- NOTE | 2019-05-20 03:00 | NUR ---
VSS. WILL CONTINUE TO MONITOR.
--- NOTE | 2019-05-20 05:00 | NUR ---
VSS. WILL CONTINUE TO MONITOR.
--- NOTE | 2019-05-20 05:00 | NUR ---
VITAL SIGNS STABLE. WILL CONTINUE TO MONITOR.
[2019-05-20 05:17] LABS: BASOPHILS 0.2 % (0-2); EOSINOPHILS 0 % (0-7); HEMATOCRIT 33.4 % (36.0-48.0); HEMOGLOBIN 11.9 g/dL (12-16); IMMATURE GRANULOCYTES 0.3 % (0-5); LYMPHOCYTES 8.8 % (15-50); MCH 32.7 pg (26.0-34.0); MCHC 35.6 g/dL (31.0-37.0); MEAN PLATELET VOLUME 10.2 fL (7.4-10.4); MONOCYTES 14.9 % (2-11); NEUTROPHILS 75.8 % (40-80); RDW 14.7 % (11.5-14.5)
[2019-05-20 05:20] LABS: INR 1.72 (0.85-1.17); MCV 91.8 fL (80.0-100.0); PLATELET COUNT 184 10x3/uL (130-400); PROTIME 19.5 SECONDS (11.6-15.0); RBC 3.64 10x6/uL (4.00-5.40); WBC 14.9 10x3/uL (4.8-10.8)
[2019-05-20 05:21] LABS: APTT 27.4 SECONDS (22.8-39.4)
[2019-05-20 05:29] LABS: ALBUMIN 2.5 g/dL (3.4-5.0); BILIRUBIN - TOTAL 0.7 mg/dL (0.2-1.3); CALCIUM 8.2 mg/dL (8.5-10.1); POTASSIUM - SERUM 4.9 mmol/L (3.5-5.1); PROTEIN - SERUM 5.2 g/dL (6.4-8.2)
[2019-05-20 05:33] LABS: ANION GAP 26.9 mmol/L (8-16); CREATININE - SERUM 7.2 mg/dL (0.6-1.3)
--- NOTE | 2019-05-20 07:00 | NUR ---
VITAL SIGNS STABLE. WILL CONTINUE TO MONITOR.
--- NOTE | 2019-05-20 07:00 | NUR ---
AWAKES EASILY TO VERBAL STIMULI SKIN COLD AND DRY. HANDS ICE COLD. FEET ICE COLD WITH SOME BLUE DISCOLORATION NOTED. OG HAS BRIGHT RED BLOOD DRAINAGE TO LOW INTERMITTENT SUCTION. DOPAMINE DECREASED TO 19 MCG/KG/MIN. MOVING ALL EXTRMEITITES. HAND PROSTHETIC TECHNICIAN EQUAL OBEYING COMMANDS. ETT SECURE TO VENT.
--- NOTE | 2019-05-20 09:00 | NUR ---
WEANING DOPAMINE. AWAKES EASILY TO VERBAL STIMULI. HERE UPDATE GIVEN.
[2019-05-20 09:27] LABS: BASOPHILS 0.3 % (0-2); EOSINOPHILS 0.1 % (0-7); IMMATURE GRANULOCYTES 0.4 % (0-5); LYMPHOCYTES 9.4 % (15-50); MCH 32.5 pg (26.0-34.0); MCHC 35.6 g/dL (31.0-37.0); MEAN PLATELET VOLUME 10.7 fL (7.4-10.4); MONOCYTES 13.5 % (2-11); NEUTROPHILS 76.3 % (40-80); RDW 14.7 % (11.5-14.5)
[2019-05-20 09:33] LABS: HEMATOCRIT 32.6 % (36.0-48.0); HEMOGLOBIN 11.6 g/dL (12-16); PLATELET COUNT 196 10x3/uL (130-400); RBC 3.57 10x6/uL (4.00-5.40)
[2019-05-20 09:34] LABS: MCV 91.3 fL (80.0-100.0)
--- NOTE | 2019-05-20 10:30 | NUR ---
DIALYSIS IN PROGRESS. PATIENT AWAKES EASILY TO VERBAL STIMULI. WEANING DOPAMINE. MOVES All extremities. ett secure to vent.
--- NOTE | 2019-05-20 11:46 | NUR ---
dr. rich here orders received.
--- NOTE | 2019-05-20 13:00 | NUR ---
DIALYSIS FINISHING UP. PATEINT TOLERATED WELL. NO FLUID REMOVED.
--- NOTE | 2019-05-20 14:00 | NUR ---
COMPLETE HIBCLENS BATH GIVEN WITH WATKINS CARE DONE. HAIR WASHED. LINEN CHANGED. PATIENT TOLERATED WELL. DR. WATT GAVE ORDER FOR VERSED FOR SEDATION. VERSED 1 MG IV GIVEN PRIOR TO BATH PATIENT TOLERATED WELL.
--- NOTE | 2019-05-20 15:32 | NUR ---
DR. PEDRO HERE TALKED WITH . STATES PATIENT WOULD NOT WANT HER LEGS REMOVED, AND NOT TO DO ANY CHEST COMPRESSIONS ON PATIENT IF HER HEART STOPS. WANTS EVERYTHING ELSE DONE. DNR ORDERS PER DR. PEDRO.
--- NOTE | 2019-05-20 17:30 | NUR ---
AWAKES EASILY TO VERBAL STIMULI. NO DISTRESS NOTED. WEANING LEVOPHED. DOPAMINE STILL OFF
--- NOTE | 2019-05-20 22:21 | NUR ---
1900 PT ASSESSMENT COMPLETED AT THIS TIME. NO CHANGES NOTED FROM REPORT. 2100 PT RELAXED AND SEDATED AT A DIANELYS OF 4 PT ABLE TO FOLLOW COMMANDS AND ANSWER QUESTION, NO DISTRESS NOTED AT THIS TIME.
[2019-05-21] VITALS (79 sets, daily range): BP systolic 81–144; BP diastolic 30–96
[2019-05-21 05:41] LABS: LYMPHOCYTES 6.5 % (15-50); MCH 33.1 pg (26.0-34.0); MCHC 35.2 g/dL (31.0-37.0); MEAN PLATELET VOLUME 10.6 fL (7.4-10.4); NEUTROPHILS 83.8 % (40-80); RDW 15.9 % (11.5-14.5)
[2019-05-21 05:43] LABS: HEMOGLOBIN 8.8 g/dL (12-16); PLATELET COUNT 110 10x3/uL (130-400); RBC 2.66 10x6/uL (4.00-5.40); WBC 10.3 10x3/uL (4.8-10.8)
--- NOTE | 2019-05-21 06:41 | NUR ---
2300 REASSESSMENT COMPLETED AT THIS TIME, VITAL SIGNS STABLE WITLL CONT. TO MONITOR 0100 PT AWAKES TO NAME AND FOLLOWS COMMANDS, NO CHANGES SEEN IN CONDITION, WILL CONT. TO MONITOR 0300 REASSESSMENT COMPLETED AT THIS TIME. PT/S HANDS MORE COLD AND DUSKY, CAP REFILL GREATER THAN 3 SECONDS 0500 NO CHANGES IN PATIENTS VITALS. WILL CONT. TO MONITOR FOR CHANGES
[2019-05-21 06:46] LABS: BILIRUBIN - TOTAL 0.43 mg/dL (0.2-1.3); CALCIUM 7.7 mg/dL (8.5-10.1); CREATININE - SERUM 5.9 mg/dL (0.6-1.3); PROTEIN - SERUM 4.6 g/dL (6.4-8.2)
[2019-05-21 06:47] LABS: ANION GAP 24.6 mmol/L (8-16); CARBON DIOXIDE 16.4 mmol/L (21.0-32.0)
[2019-05-21 06:48] LABS: TROPONIN-I 1.546 ng/mL (0.000-0.060)
--- NOTE | 2019-05-21 06:57 | NUR ---
DR. WATT CALLED ABOUT ELEVATED TROPONIN
--- NOTE | 2019-05-21 07:00 | NUR ---
WEANING LEVPHED GTT. PATIENT AWAKES EASILY TO VERBAL STIMULI, OBEYS COMMANDS NODES TO YES AND NOT QUESTIONS. ETT SECURE TO VENT. RIGHT SUBCLAVIAN CATH INFUSING WITH LEVOPHED, VASOPRESSIN GTT, NS AT 50 ML HOUR
--- NOTE | 2019-05-21 08:00 | NUR ---
LEFT LEG WITH INCREASING MOTTLING BRUSINING COLOR. RIGHT COLD AND BLUE. RIGHT CALF AND RIGHT THIGH WARM TO TOUCH. RIGHT LEG IMMOBILIZER IN PLACE. RIGHT GROIN DRESSING DRY AND INTACT NO CHANGE IN BRUSING RIGHT GROIN AREA. LEFT FEMEROL CHESTER INTACT NO BLEEDING OR SWELLING AT SITE, REPOSITIONED TO IMPROVE WAVE FORM. LEFT LEG, FOOT, CALF THIGH COLD TO TOUCH. MONITOR SR. HANDS COLD AND FINGERS BLUE IN COLOR.
--- NOTE | 2019-05-21 09:00 | NUR ---
ALERT. NO RESP DISTRESS. DENIES PAIN. WILL REST AT TIMES, AT TIMES BECOMES FRUSTRATED NEEDS REASSURANCES
[2019-05-21 09:07] LABS: ANION GAP 19.7 mmol/L (8-16); CALCIUM 7.4 mg/dL (8.5-10.1); CARBON DIOXIDE 20.1 mmol/L (21.0-32.0); POTASSIUM - SERUM 5.8 mmol/L (3.5-5.1)
--- NOTE | 2019-05-21 11:00 | NUR ---
DR. OSMAN HERE, PULSE FOUND WITH DOPPLER IN RIGHT LOWER LEG, NO PULSES IN LEFT LEG. STATES PATIENT NEEDS A SURGERY CONSULT FOR AMPUTATION. ORDERS RECEIVED FOR UNIT OF PLATELETS. DR. WATT HERE.
--- NOTE | 2019-05-21 12:00 | NUR ---
DIALYSIS IN PROGRESS. PATIENT GIVEN VERSED TO HELP KEEP HER CALM IN BED
--- NOTE | 2019-05-21 14:15 | NUR ---
DR. PEDRO HERE TALKED WITH ABOUT STOPPING PATIENT CARE AND KEEPING HER COMFORTABLE. TO TALK WITH FAMILY.
--- NOTE | 2019-05-21 15:30 | NUR ---
DIALYSIS COMPLETE. PATIENT TOLERATED WELL. CHESTER LEFT FEMEROL REMOVED. PRESS HELD X 5 MIN NO BLEEDING NOTED. CLEAR TEGRADERM APPLIED OVER FOLDED 4X4. COMPLETE HIBCLENS BATH GIVEN WITH LINEN CHANGE PATIENT TOLERATED WELL. LEVOPHED WEANED OFF. VASOPRESSIN AT .02 UNITS HOUR. NO DISTRESS. WILL NODED HEAD TO YES AND NO QUESTIONS AND RETURN TO SLEEP.
--- NOTE | 2019-05-21 16:07 | NUR ---
FAMILY HERE. UPDATE GIVEN
[2019-05-21 16:21] LABS: BASOPHILS 0.1 % (0-2); EOSINOPHILS 0 % (0-7); HEMATOCRIT 21.1 % (36.0-48.0); IMMATURE GRANULOCYTES 0.5 % (0-5); LYMPHOCYTES 6.5 % (15-50); MCH 32.3 pg (26.0-34.0); MCHC 35.1 g/dL (31.0-37.0); MCV 92.1 fL (80.0-100.0); MEAN PLATELET VOLUME 10.9 fL (7.4-10.4); MONOCYTES 11.1 % (2-11); NEUTROPHILS 81.8 % (40-80); PLATELET COUNT 96 10x3/uL (130-400); RBC 2.29 10x6/uL (4.00-5.40); RDW 15.5 % (11.5-14.5)
[2019-05-21 16:25] LABS: HEMOGLOBIN 7.4 g/dL (12-16)
--- NOTE | 2019-05-21 16:35 | NUR ---
FAMILY HERE. REQUEST WE TERMINALLY EXTUBE PATIENT IS READY NOW. DR. WATT NOTIFIED ORDERS RECEIVED.
[2019-05-21 16:37] LABS: ANION GAP 15.2 mmol/L (8-16); CALCIUM 8.2 mg/dL (8.5-10.1); CARBON DIOXIDE 24.9 mmol/L (21.0-32.0)
[2019-05-21 16:40] LABS: CREATININE - SERUM 3.2 mg/dL (0.6-1.3); INR 2.01 (0.85-1.17); PROTIME 22.1 SECONDS (11.6-15.0)
[2019-05-21 16:41] LABS: PLATELET ESTIMATE DECREASED; POTASSIUM - SERUM 4.1 mmol/L (3.5-5.1)
[2019-05-21 16:42] LABS: APTT 40.1 SECONDS (22.8-39.4)
--- NOTE | 2019-05-21 16:45 | NUR ---
DR. OSMAN AND MAYELA NOTIFIED OF TERMIMIAL EXTUBATION.
--- NOTE | 2019-05-21 17:32 | NUR ---
EXTUBATED, OG OUT. VASOPRESSIN TURNED OFF. OXYGEN APPLIED AT 2 LITERS PER NC. AT BEDSIDE. PATIENT IN NO DISTRESS AT THIS TIME.
--- NOTE | 2019-05-21 18:11 | NUR ---
TINY SIP OF WATER GIVEN. TOLERATED WELL NO COUGHING OR CHOKING WITH ICE WATER
--- NOTE | 2019-05-21 19:00 | NUR ---
REPORT RECEIVED. RECEIVED PATIENT IN BED, RESTING WITH EYES CLOSED. EASILY ROUSED. AT BEDSIDE. MOTTLING TO BLE OBSERVED, MORE EXTENSIVE IN LLE. RLE COLD. LLE WARM. NO COMPLAINTS OF PAIN AT THIS TIME. COMFORT MEASURES OBSERVED.
[2019-05-22] VITALS (12 sets, daily range): BP systolic 82–117; BP diastolic 34–61
--- NOTE | 2019-05-22 03:00 | NUR ---
RESTING COMFORTABLY WITH EYES CLOSED. VSS. AT BEDSIDE
--- NOTE | 2019-05-22 07:15 | NUR ---
REPORT RECEIVED. ASSESSMENT COMPLETE PER FLOW SHEET. VSS. FAMILY AT BEDSIDE GIVEN UDPATE. DENIES NEEDS WILL CONTINUE TO MONITOR
--- NOTE | 2019-05-22 09:38 | NUR ---
Nutrition follow-up: Pt intubated, sedated NPO Labs reviewed Wt: 134# Will need nutrition support started if medically feasible within 24-48 hours RDN following.
--- NOTE | 2019-05-22 15:44 | MORECARE ---
CASE MANAGEMENT DISCHARGE SUMMARY PATIENT: GINNA CAROLINA UNIT: [id number] ADM DATE: 05/18/19 AGE: 68 : 46 SEX: F ROOM/BED: D.2106 AUTHOR: GERARDO BROWNING PHYSICIAN: REFERRING PHYSICIAN: ANIVAL PEDRO MD DATE OF SERVICE: 05/22/19 Discharge Plan Patient Name: GINNA CAROLINA Facility: [facility]:[place] : 1950 Planned Disposition: Hospice Medical Facility Anticipated Discharge Date: 05/22/19 Discharge Date: Expected LOS: 4 Initial Reviewer: [email or web address] Initial Review Date: 05/22/2019 Generated: 05/22/19 4:44 pm DCPIA - Discharge Planning Initial Assessment Updated by [email or web address]: Akin Hastings on 05/22/19 3:42 pm * Is the patient Alert and Oriented? Yes * How many steps to enter\exit or inside your home? RAMP * PCP DR. PEARSON * Pharmacy [facility] [place] [address] * Preadmission Environment Home with Family * ADLs Independent * Equipment None * Other Equipment NO MEDICAL EQUIPMENT PROVIDER PREFERENCE * List name and contact numbers for known caregivers / representatives who currently or will assist patient after discharge: LISA CAROLINA, SPOUSE, * Verbal permission to speak to the caregivers and representatives has been obtained from the patient. N/A * Community resources currently utilized Other * Please name any agencies selected above. [facility], [facility]; [facility], 0700, [facility] * Additional services required to return to the preadmission environment? Yes * Can the patient safely return to the preadmission environment? Yes * Has this patient been hospitalized within the prior 30 days at any hospital? No Patient Name: GINNA CAROLINA Page [id number] at 1544 All edits/amendments must be made on the electronic document DICTATION DATE: 05/22/19 1544 CUSTODIAN ATHLETIC EQUIPMENT: PHYLLIS 05/22/19 1544 RPT#: [id number] DC DATE: STATUS: ADM IN [facility] [address] [place] [address] END OF REPORT
--- NOTE | 2019-05-22 15:56 | MORECARE ---
CASE MANAGEMENT DISCHARGE SUMMARY PATIENT: GINNA CAROLINA UNIT: [id number] ADM DATE: 05/18/19 AGE: 68 : 46 SEX: F ROOM/BED: D.2105 AUTHOR: NAM,DOC PHYSICIAN: REFERRING PHYSICIAN: ANIVAL PEDRO MD DATE OF SERVICE: 05/22/19 Discharge Plan Patient Name: GINNA CAROLINA Facility: [facility]:[place] : 1950 Planned Disposition: Hospice Medical Facility Anticipated Discharge Date: 05/22/19 Discharge Date: Expected LOS: 4 Initial Reviewer: [email or web address] Initial Review Date: 05/22/2019 Generated: 05/22/19 4:56 pm Comments DCP- Discharge Planning Updated by [email or web address]: Akin Hastings on 05/22/19 2:[address] Patient Name: GINNA CAROLINA Admission Status: ER Accout number: [id number] Admission Date: 05-18-2019 : 1950 Admission Diagnosis: Attending: ANIVAL PEDRO Current LOS: 4 Anticipated DC Date: 05-22-2019 Planned Disposition: Primary Insurance: MEDICARE A & B Discharge Planning Comments: CM RECEIVED HOSPICE CONSULT ORDER, THERE WAS NO FAMILY IN ROOM AT 1130 HOURS, 1340 HOURS AND 1400 HOURS. CM CALLED PT'S SPOUSE, LISA CAROLINA, , NOTIFIED OF ORDER. LISA ARRIVED AT HOSPITAL AND SPOKE TO PT IN HALLWAY. LISA REPORTS SPEAKING TO THE DOCTORS AND KNOWS HIS IS DYING AND HAS NO CHANCE OF "MAKING IT". LISA REPORTS THE DOCTORS TOLD HIM THE PATIENT IS ALREADY GETTING COMFORT CARE. CM EXPLAINED HOSPICE SERVICES, PROVIDERS AND LOCATIONS. LISA IS IN AGREEMENT WITH HOSPICE CARE LONG THEY KEEP PT FROM HAVING ANY PAIN. LISA IS HAPPY WITH THE CARE AT [facility] AND WANT CM TO CONTACT [facility] FOR EVALUATION. PT'S SPOUSE DENIES NEEDS AT THIS TIME. IMPORTANT MESSAGE FROM MEDICARE PROVIDED AND EXPLAINED. A FEW MINUTES LATER, BEDSIDE NURSE INFORMED CM THAT PT HAD . Forestry Aide: Akin Hastings DCPIA - Discharge Planning Initial Assessment Updated by [id number]: Akin Hastings on 05/22/19 3:42 pm * Is the patient Alert and Oriented? Yes * How many steps to enter\\exit or inside your home? RAMP * PCP DR. PEARSON * Pharmacy [facility] [address] * Preadmission Environment Home with Family * ADLs Independent * Equipment None * Other Equipment NO MEDICAL EQUIPMENT PROVIDER PREFERENCE * List name and contact numbers for known caregivers / representatives who currently or will assist patient after discharge: LISA CAROLINA, SPOUSE, * Verbal permission to speak to the caregivers and representatives has been obtained from the patient. N/A * Community resources currently utilized Other * Please name any agencies selected above. [facility], [facility]; [facility], 0700, [employer] * Additional services required to return to the preadmission environment? Yes * Can the patient safely return to the preadmission environment? Yes * Has this patient been hospitalized within the prior 30 days at any hospital? No Coverage Notice Reviewer: [id number] Lucio Hastings Notice Issued Date-Time: 05/22/2019 14:53 Notice Type: IM Discharge Notice Notice Delivered To: Family Member Relationship to Patient: Spouse Instructional Systems Specialist Name: LISA CAROLINA Delivery Method: HAND - Hand Delivered Bibi Days: Prior Verbal Notification: Recipient Understood Notice: Yes Recipient Signature: Yes Med Rec Note Co-signed by Attending: Coverage Notice Comment: Last DP export: 05/22/19 2:44 p Patient Name: GINNA CAROLINA Page [id number] at 1556 All edits/amendments must be made on the electronic document DICTATION DATE: 05/22/196 WARDROBE CUSTODIAN: PHYLLIS 05/22/19 155 RPT#: [id number] DC DATE: STATUS: ADM IN [facility] [address] [place] [address] END OF REPORT
--- NOTE | 2019-06-08 07:19 | OP ---
PATIENT NAME: GINNA CAROLINA MEDICAL RECORD: [id number] :[birth year] LOCATION:D.M2 D.2102 ADMISSION DATE:05/18/19 SURGEON: LAINA MCCOY MD DATE OF OPERATION: 05/19/2019 PREOPERATIVE DIAGNOSES: 1. Need for IV access. 2. Severe hypotension with shock. 3. Peripheral vascular disease with compromised right lower extremity and ischemic limb. 4. End-stage renal disease, on hemodialysis. 5. Hypercoagulable state. POSTOPERATIVE DIAGNOSES: 1. Need for IV access. 2. Severe hypotension with shock. 3. Peripheral vascular disease with compromised right lower extremity and ischemic limb. 4. End-stage renal disease, on hemodialysis. 5. Hypercoagulable state. PROCEDURE: 1. Right subclavian vein central venous line. 2. Left femoral arterial line. SURGEON: Laina Mccoy MD REPORT OF PROCEDURE: The patient's right chest was prepped and draped in sterile fashion. A needle was used to cannulate the right subclavian vein and a guidewire was advanced with ease. A dilator was placed over the wire followed by the triple lumen catheter. The catheter aspirated nonpulsatile dark blood and flushed easily in all 3 ports. This was sutured into place with 3-0 nylons and dressed appropriately. We then approached the left groin, which was prepped and draped in sterile fashion. A needle was used to cannulate the left femoral artery and a guidewire was advanced with ease. A small skin incision was made and the femoral catheter was inserted over the wire. We then had good pulsatile flow through the catheter. This catheter was sutured into place with 3-0 silks and the catheter was affixed to the pressure bag. The patient had an initial systolic blood pressure reading of 61, which correlated with the cuff. COMPLICATIONS: None. CONDITION: Critical. ANESTHESIA: General endotracheal. Procedure done at the bedside. TRANSINT:[id number] Voice Confirmation ID: [id number] DOCUMENT ID: [id number] OPERATIVE REPORT [id number] GINNA CAROLINA LAINA MCCOY MD at 0719 CC: [id number] DICTATION DATE: 05/26/19 1346 SOLO TRUCK DRIVER: 05/26/19 1405 DIS IN 05/22/19 [facility] [address] [place] [address]
== END 2019-05-22 17:12 | DRG 270 ==
LOC: D.ER 11:15 → D.ICU 13:50 → D.M2 13:50 → D.CVICU 16:46 → D.ICU 16:49 → D.M2 05-22 10:57
PROVIDERS: Family Medicine; General Practice; Internal Medicine Nephrology; Radiology Vascular & Interventional Radiology; ADMIT Internal Medicine; ATTEND Internal Medicine
PROC: 3E05317 Introduction of Other Thrombolytic into Peripheral Artery, Percutaneous Approach (ICD-10-PCS; 2019-05-18)
PROC: 04CL3ZZ Extirpation of Matter from Left Femoral Artery, Percutaneous Approach (ICD-10-PCS; principal; 2019-05-18 14:30)
PROC: 047Q3ZZ Dilation of Left Anterior Tibial Artery, Percutaneous Approach (ICD-10-PCS; 2019-05-19)
PROC: 5A12012 Performance of Cardiac Output, Single, Manual (ICD-10-PCS; 2019-05-19)
PROC: 0BH17EZ Insertion of Endotracheal Airway into Trachea, Via Natural or Artificial Opening (ICD-10-PCS; 2019-05-19)
PROC: 5A1945Z Respiratory Ventilation, 24-96 Consecutive Hours (ICD-10-PCS; 2019-05-19)
DX: E11.51 Type 2 diabetes mellitus with diabetic peripheral angiopathy without gangrene (principal); N18.6 End stage renal disease; J95.821 Acute postprocedural respiratory failure; A41.9 Sepsis, unspecified organism; I12.0 Hypertensive chronic kidney disease with stage 5 chronic kidney disease or end stage renal disease; D68.59 Other primary thrombophilia; N25.81 Secondary hyperparathyroidism of renal origin; J98.11 Atelectasis; D62 Acute posthemorrhagic anemia; E46 Unspecified protein-calorie malnutrition; Z68.1 Body mass index [BMI] 19.9 or less, adult; L76.32 Postprocedural hematoma of skin and subcutaneous tissue following other procedure; I70.203 Unspecified atherosclerosis of native arteries of extremities, bilateral legs; E11.22 Type 2 diabetes mellitus with diabetic chronic kidney disease; D63.1 Anemia in chronic kidney disease; F03.90 Unspecified dementia, unspecified severity, without behavioral disturbance, psychotic disturbance, mood disturbance, and anxiety; E87.5 Hyperkalemia; Y84.9 Medical procedure, unspecified as the cause of abnormal reaction of the patient, or of later complication, without mention of misadventure at the time of the procedure; J47.9 Bronchiectasis, uncomplicated; Z66 Do not resuscitate; Z51.5 Encounter for palliative care; Z86.73 Personal history of transient ischemic attack (TIA), and cerebral infarction without residual deficits; R40.2364 Coma scale, best motor response, obeys commands, 24 hours or more after hospital admission; R40.2134 Coma scale, eyes open, to sound, 24 hours or more after hospital admission; R40.2214 Coma scale, best verbal response, none, 24 hours or more after hospital admission